=== PATIENT | female | born 1970 | race Caucasian/White ===

== ENCOUNTER 2025-03-23 13:02 | Observation (INO) | payer BC, SELFPAY ==
[2025-03-23] VITALS (10 sets, daily range): BP systolic 118–185; BP diastolic 65–107; PULSE 59–80; RESP 12–18; TEMP 36–36.7; O2SAT 96–100; BMI 22.5; BMI 23.6
--- NOTE | 2025-03-23 13:04 | CM.ED ---
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 Patient arrived via EMS and was alone and was taken off for medical treatment following initial assessment by ED doctor. Kiesha Johnson MSW, MANAGER ROOM
--- NOTE | 2025-03-23 13:05 | EKG12_ITS ---
Test Reason : STROKE Blood Pressure : */* mmHG Vent. Rate : 72 BPM Atrial Rate : 72 BPM P-R Int : 134 ms QRS Dur : 84 ms QT Int : 406 ms P-R-T Axes : 48 32 50 degrees QTcB Int : 444 ms Normal sinus rhythm Normal ECG Confirmed by Jayden Johnson ([id number]), medical editor MAUDE JACOME ([id number]) on 03/24/2025 10:25:35 AM Referred By: Confirmed By: Jayden Johnson
--- NOTE | 2025-03-23 13:08 | ED.VIS.STROK ---
HPI History of Present Illness Chief Complaint: Stroke Alert Informant: patient and EMS Narrative Narrative: Patient is a 54-year-old female presenting to the ED via EMS as a pre-hospital stroke alert with sudden onset of lightheadedness and generalized weakness. - Onset of symptoms occurred 1.5 hours prior to arrival while driving. She was able to safely toe puller into a parking lot and call EMS. - Describes feeling really lightheaded with a sensation of impending syncope. She states this probably lasted 30 minutes or so before significantly/noticeably improving. - Reports difficulty moving extremities, describing a feeling of heaviness. - Denies headache or visual changes. Also denies chest discomfort, palpitations, dyspnea, nausea, vomiting, other focal symptoms except for trouble speaking. - No loss of consciousness reported. - Similar episode occurred several years ago, evaluated in hospital with normal testing. - No known medical problems; not on any medications. EMS Report: - Blood pressure recorded in the 170s. - Pulse: 80 bpm. - No lateralizing deficits observed; generalized symmetrical weakness noted. - Speech normal; no visual field cuts. [facility] Medical History HTN (hypertension) Allergy/AdvReac Type Severity Reaction Status Date / Time Sulfa (Sulfonamide Allergy Intermediate Rash Verified 03/23/25 13:29 Antibiotics) Social History Smoking Status: Never smoker ROS [facility] ED Constitutional Constitutional ED: Denies chills or fever(s) Eyes Eyes: Denies change in vision or diplopia ENT ENT ED: Denies rhinorrhea or sore throat Cardiovascular Cardiovascular: Reports lightheadedness; Denies chest pain, palpitations, radiating jaw, neck or arm pain or syncope Respiratory/Chest Respiratory/Chest: Denies cough or dyspnea Gastrointestinal Gastrointestinal: Denies abdominal pain, diarrhea, nausea or vomiting Genitourinary Genitourinary ED: Denies dysuria or hematuria Musculoskeletal Musculoskeletal: Denies back pain or neck pain Integumentary Denies abscess or rash Neurologic Neurologic: Reports as per HPI and abnormal speech; Denies headache(s), paresthesias or weakness Psychiatric Psychiatric: Reports anxiety; Denies suicidal thoughts EXAM Physical Exam Const Vital Signs: 03/23/25 13:03 03/23/25 13:10 03/23/25 13:11 Temperature 96.8 F L Temperature Source Temporal Pulse Rate 80 80 Respiratory Rate 16 Blood Pressure 179/107 H 179/101 H Blood Pressure Mean 131 127 Pulse Ox 100 98 Oxygen Delivery Method Room Air Room Air 03/23/25 13:35 03/23/25 14:05 03/23/25 14:30 Temperature Temperature Source Pulse Rate 71 65 65 Respiratory Rate 16 17 16 Blood Pressure 158/97 H 173/99 H 170/90 H Blood Pressure Mean 117 123 116 Pulse Ox 100 100 100 Oxygen Delivery Method Room Air 03/23/25 15:00 Temperature Temperature Source Pulse Rate 65 Respiratory Rate 16 Blood Pressure 168/84 H Blood Pressure Mean 112 Pulse Ox 100 Oxygen Delivery Method Positive well nourished and well developed General Appearance ED: well developed and NAD HEENT Reports moist mucous membranes normocephalic and atraumatic Eyes PERRL and EOMs intact bilaterally Neck full ROM and supple Resp normal respiratory effort and clear to auscultation bilaterally Cardio regular rate, regular rhythm and no murmurs GI non-tender and non-distended Auscultation: normoactive bowel sounds Palpation: soft Back/Spine no CVA tenderness General Back: other FROM Extremity normal to inspection General Extremety ED: Negative for edema, pulses abnormal or tenderness General Extremity: Negative for edema or pulses abnormal Neuro oriented x3, CN's II-XII intact bilaterally and no sensory deficits noted Sensorium / Orientation: awake and alert Motor Exam: strength 5/5 throughout Psych Psych Narrative: Flat affect Skin no rashes or lesions noted and no wounds MDM MDM MDM Narrative Medical decision making narrative: Assessment: The patient is a 54-year-old female presenting for sudden near-syncopal episode with transient generalized weakness and possible expressive aphasia. Symptoms began 1.5 h prior to arrival while driving; no headache, visual field deficit, or focal motor deficit was noted by EMS or on ED exam. NIHSS 0. CT head and CTA head/neck are negative for hemorrhage or large-vessel occlusion, and her neurologic exam has returned to baseline with normal speech and ambulation. Initial EKG is normal and first troponin is negative. D-dimer is mildly elevated at 0.65 mcg/mL, so pulmonary embolism remains on the differential; CTA chest has been ordered. Given resolved neurologic findings and negative initial imaging, acute ischemic stroke is less likely, but admission is warranted for MRI brain and further stroke work-up. Plan: - Admit under hospitalist for stroke work-up and telemetry monitoring. - IV fluid bolus post-contrast per radiology recommendation. - Continue neurologic checks while awaiting CTA chest results. - Repeat troponin pending. Diagnostics: - EKG: normal sinus rhythm, no ST-T changes. Independently interpreted by Carter ferrell. - Labs: initial troponin negative; D-dimer 0.65 mcg/mL (age-adjusted elevated). - CT head: no acute hemorrhage. - CTA head/neck: no large-vessel occlusion. - CTA chest ordered; results pending. Consultations: - Stroke neurology ? not a thrombolytic candidate; recommend admission and MRI brain. - Hospitalist ? accepted admission for stroke evaluation. - Radiology ? agreed to low-contrast CTA chest with post-scan IV fluid flush. Reevaluations: - Patient?s weakness resolved; ambulatory in department and feeling much better. Lab Data Attestation: I reviewed the patient's lab results. Labs: Laboratory Results - last 24 hr 03/23/25 12:50 WBC 9.3 RBC 4.69 Hgb 14.3 Hct 42.8 MCV 91.3 MCH 30.5 MCHC 33.4 RDW Std Deviation 41.9 RDW Coeff of Dilip 12.6 Plt Count 318 MPV 10.8 Immature Gran % (Auto) 0.300 Neut % (Auto) 50.8 Lymph % (Auto) 38.3 [place] % (Auto) 7.3 Eos % (Auto) 2.4 Baso % (Auto) 0.9 Absolute Neuts (auto) 4.7 Absolute Lymphs (auto) 3.57 Nucleated RBC % 0 PT 13.0 INR 1.0 APTT 24.8 D-Dimer Quant (PE/DVT) 0.65 H* Sodium 138 Potassium 3.8 Chloride 103 Carbon Dioxide 21.7 Anion Gap 13 BUN 18 Creatinine 0.85 Estim Creat Clear Calc 69.67 Est GFR (MDRD) Non-Af 82 BUN/Creatinine Ratio 21.2 H Glucose 103 H Calcium 9.3 Troponin T High Sens < 6 Radiography Diagnostic Testing: Clinical Impression(s) from Imaging Studies Brain CT 03/23/25 13:10 IMPRESSION: 1. No acute intracranial abnormality. 2. Significant left ethmoid sinus disease. Reading Location: [id number] Head/Neck CTA 03/23/25 13:10 IMPRESSION: 1. No hemodynamically significant stenosis within the head or neck. No evidence of intracranial aneurysm. 2. Left thyroid nodule that is 1.1 cm. No further follow up required for incidental thyroid nodules measuring less than 1.5 cm in patients 35 years old and greater with no known history of malignancy or thyroid disease. Reading Location: [facility] Rhythm Strip Rhythm Strip: Sinus Rhythm Rate: 78 Ectopy: None EKG Initial EKG: Attestation: I personally reviewed and interpreted this EKG as follows: Interpretation: Sinus Rhythm and No Acute Injury Pattern Comments: Nml axis & intervals; nml EKG Management Discussion w/another healthcare provider: Hospitalist, Inspector Raw Quartz (stroke neuro via xfer cntr) and Radiologist (at 1340, reporting neg CT and neg CTA) Discharge Plan Dx/Rx/DC Orders Clinical Impression: Near syncope, Chest pain, Expressive aphasia, Accelerated hypertension Disposition Disposition: Acute Care Hospital [facility] NIHSS NIHSS 1a. Level of Consciousness: 0 - Alert; keenly responsive 1b. LOC Questions: 0 - Answers BOTH questions correctly 1c. LOC Commands: 0 - Performs BOTH tasks correctly 2. Best Gaze: 0 - Normal 3. Visual: 0 - No visual loss 4. Facial Palsy: 0 - Normal symmetrical movements 5a. Left Arm: 0 - No drift; arm holds 90 (or 45) degrees for full 10 seconds 5b. Right Arm: 0 - No drift; arm holds 90 (or 45) degrees for full 10 seconds 6a. Left Le - No drift; leg holds 30-degree position for full 5 seconds 6b. Right Le - No drift; leg holds 30-degree position for full 5 seconds 7. Limb Ataxia: 0 - Absent 8. Sensory: 0 - Normal; no sensory loss 9. Best Language: 0 - No aphasia; normal 10. Dysarthria: 0 - Normal 11. Extinction and Inattention: 0 - No abnormality Total: 0 Stroke Questions Stroke Team Activated: Yes (prehospital) IV Thrombolytic Administered: No (sx resolved)
--- NOTE | 2025-03-23 13:10 | CT_ITS ---
PROCEDURE: STROKE CTA HEAD AND NECK W/CON 03/23/2025 REASON FOR EXAM: NEURO DEFICIT, ACUTE, STROKE SUSPECTED TECHNIQUE: Procedure Code: CTCTA.ST.HN Modality: CT Procedure: STROKE CTA HEAD AND NECK W/CON Axial CTA images of the head and neck performed with intravenous contrast. MIP reconstructed images were created and reviewed. Note: Per PQRS, the description of internal carotid artery percent stenosis, including 0 percent or normal exam, is based on [place] Symptomatic Carotid Endarterectomy Trial (NASCET) criteria. CONTRAST: Isovue 370 VOLUME: 100 mL One or more dose reduction techniques were used (e.g., Automated exposure control, adjustment of the mA and/or kV according to patient size, use of iterative reconstruction technique). RADIATION DOSE SUMMARY: CTDlvol: 16.61, 16.14 mGy DLP: 611 mGycm COMPARISON: None. FINDINGS: CTA HEAD: INTERNAL CAROTID ARTERIES (ICA) No significant stenosis. No occlusion. No aneurysm. ANTERIOR CEREBRAL ARTERIES (GOSIA) No significant stenosis. No occlusion. No aneurysm. MIDDLE CEREBRAL ARTERIES (MCA) No significant stenosis. No occlusion. No aneurysm. POSTERIOR CEREBRAL ARTERIES (INTERLOCKING TOWER OPERATOR) No significant stenosis. No occlusion. No aneurysm. BASILAR ARTERY No significant stenosis. No occlusion. No aneurysm. VERTEBRAL ARTERIES No significant stenosis. No dissection or occlusion. VENOUS STRUCTURES Patent. BONES No acute osseous abnormality. CTA NECK: COMMON CAROTID ARTERIES (CCA) No significant stenosis. No dissection or occlusion. INTERNAL CAROTID ARTERIES No stenosis by NASCET criteria. No dissection or occlusion. VERTEBRAL ARTERIES No significant stenosis. No dissection or occlusion. SOFT TISSUES Mixed density 1.1 cm nodule in the left thyroid lobe. No lymphadenopathy. BONES No acute osseous abnormality. Mild degenerative changes of the spine. CT/STROKE CTA Head AND Neck W/Con IMPRESSION: 1. No hemodynamically significant stenosis within the head or neck. No evidenc e of intracranial aneurysm. 2. Left thyroid nodule that is 1.1 cm. No further follow up required for inci dental thyroid nodules measuring less than 1.5 cm in patients 35 years old and greater with no known history of malignancy or thy roid disease. Reading Location: [id number]
--- NOTE | 2025-03-23 13:10 | CT_ITS ---
PROCEDURE: STROKE BRAIN/HEAD WITHOUT CONT 03/23/2025 REASON FOR EXAM: NEURO DEFICIT, ACUTE, STROKE SUSPECTED TECHNIQUE: Procedure Code: CTBR.ST Modality: CT Procedure: STROKE BRAIN/HEAD WITHOUT CONT Coronal and Sagittal reconstruction series were provided. One or more dose reduction techniques were used (e.g., Automated exposure control, adjustment of the mA and/or kV according to patient size, use of iterative reconstruction technique. RADIATION DOSE SUMMARY: CTDlvol: 44.99 mGy DLP: 897 mGycm COMPARISON: None. FINDINGS: BRAIN: No acute intraparenchymal hemorrhage. No mass lesion. No CT evidence for acute territorial infarct. No midline shift or extra-axial collection. Small hypodense focus in the inferior right basal ganglia, likely an old lacunar infarct or prominent perivascular space. VENTRICLES: No hydrocephalus. ORBITS: The orbits are unremarkable. SINUSES AND MASTOIDS: Mild hnoo-oqdxlrd-jgqm-right maxillary sinus mucosal thickening. Near-complete left ethmoid sinus opacification. The mastoid air cells are clear. SOFT TISSUES: No acute abnormality seen. BONES: No acute osseous abnormality seen. CT/STROKE Brain/Head without Cont IMPRESSION: 1. No acute intracranial abnormality. 2. Significant left ethmoid sinus disease. Reading Location: [id number]
[2025-03-23 13:47] LABS: Prothrombin Time (Protime)PT. 13.0 SECONDS (11.7-14.9)
[2025-03-23 13:48] LABS: Partial Thromboplast Time 24.8 Seconds (24.1-36.2)
[2025-03-23 13:50] LABS: Anion Gap 13 (5-15); BUN 18 mg/dL (4-19); BUN/Creat Ratio 21.2 RATIO (10-20); Calcium,Total 9.3 mg/dL (7.6-11.0); Carbon Dioxide 21.7 mmol/L (21.0-32.0); Chloride 103 mmol/L (98-108); Estimated Creatinine Clearance 69.67 ml/min (50-250); Glucose 103 mg/dL (70-99); Potassium 3.8 mmol/L (3.3-5.1); Troponin T High Sensitivity < 6 ng/L (<=14)
[2025-03-23 14:02] LABS: Hematocrit 42.8 % (37-47); Hemoglobin 14.3 g/dL (12.0-15.0); Immature Granulocytes Count 0.030 X10^3/uL (0.0-0.0); Mean Corp Hgb Conc 33.4 g/dL (32-36); Mean Corpuscular Volume 91.3 fL (81-99); Mean Platelet Vol. 10.8 fl (6.2-12.0); NRBC Flagged by Analyzer 0 % (0-5); Platelet Count 318 K/mm3 (150-450); RBC Distribution Width CV 12.6 % (11.6-14.6); RBC Distribution Width SD 41.9 fl (35.1-43.9); Red Blood Count 4.69 M/mm3 (4.2-5.4); White Blood Count 9.3 K/mm3 (4.4-11.0)
[2025-03-23 14:09] LABS: D-Dimer Quantitative (DVT/PE) 0.65 FEU/ug/m (0.27-0.49)
--- NOTE | 2025-03-23 14:47 | HP.PCM.HOS_ITS ---
HPI - General General Date of Admission: 03/23/25 Date of Service: 03/23/25 Chief Complaint: lightheadedness, weakness HPI Narrative MITCHELL BOWLING, is a 54 F with a PMH as outlined who was admitted via the ED on 03/23/2025 with a complaint of lightheadedness and weakness, with symptom onset being ~ 1.5 hours prior to her coming in to the ED. Symptoms occurred whilst driving. Sh started feeling very lightheaded, and had difficulty moving her extremities. SHe denied any chest pain initially but during my review she admitted to some intermittent chest pain, and denied any shortness of breath, nausea, vomiting or any other symptoms. She had associated hyperventilation. Review of systems was otherwise negative. The EMS was called and she was lethargic when she arrived, but they did not note any focal symptoms. Review of systems is otherwise negative. Patient admits to going through a divorce and also states she has a very stressful job. She also has a history of panic attacks. She had a similar occurrence several years ago and says she was worked up for stroke at that time to and other workup was negative. VItals in the ED were BP of 170/90, [place] of 65, RR of 16 and oxygen sats of 100% on room air. CBC showed Hb of 14.3, wbc of 9.3 and platelets of 318. D-dimer was 65 which is elevated for age. Chemistry shows sodium of 138 with potassium of 3.8 and bicarb of 21.7 with creatinine of 0.85. CT of the brain showed no acute intracranial pathology and showed significant left ethmoid sinus disease. CTA head and neck showed no hemodynamically significant stenosis. [facility] telestroke neurology reviewed her and recommended that she be admitted to be worked up for stroke. [facility] Medical History (Updated 03/23/25 @ 16:32 by Christine Tate) Raynauds syndrome HTN (hypertension) Home Medications ?Medication ?Instructions ?Recorded ?Last Taken ?Type lisinopril 5 mg tablet 5 mg PO DAILY 03/23/2503/23 History Allergy/AdvReac Type Severity Reaction Status Date / Time Sulfa (Sulfonamide Allergy Intermediate Rash Verified 03/23/25 13:29 Antibiotics) Family History (Updated 03/23/25 @ 16:33 by Christine Tate) Mother Colon cancer Father Lung cancer Surgical History (Updated 03/23/25 @ 16:33 by Christine Tate) History of ankle surgery Social History Smoking Status: Never smoker ROS Constitutional Constitutional: Reports fatigue, malaise and weakness; Denies anorexia, chills or fever(s) Eyes Eyes: Denies change in vision or double vision ENT HEENT: Denies dysphagia, headache(s) or sore throat Cardiovascular Cardiovascular: Reports lightheadedness; Denies chest pain, dyspnea on exertion, orthopnea, palpitations, paroxysmal nocturnal dyspnea, rapid heart rate or syncope Respiratory/Chest Respiratory/Chest: Denies cough, dyspnea, shortness of breath at rest or shortness of breath with exertion Gastrointestinal Gastrointestinal: Denies abdominal pain, diarrhea, nausea or vomiting Genitourinary Genitourinary: Denies burning urination or dysuria Musculoskeletal Musculoskeletal: Denies joint pain Neurologic Neurologic: Reports dizziness; Denies abnormal speech, confusion, focal weakness, headache(s), numbness, paresthesias, seizure-like activity, seizures or syncope Psychiatric Psychiatric: Denies anxiety Vital Signs Vital Signs Vital Signs: 03/23/25 13:03 03/23/25 13:10 03/23/25 13:11 Temperature 96.8 F L Temperature Source Temporal Pulse Rate 80 80 Respiratory Rate 16 Blood Pressure 179/107 H 179/101 H Blood Pressure Mean 131 127 Pulse Ox 100 98 Oxygen Delivery Method Room Air Room Air 03/23/25 13:35 03/23/25 14:05 03/23/25 14:30 Temperature Temperature Source Pulse Rate 71 65 65 Respiratory Rate 16 17 16 Blood Pressure 158/97 H 173/99 H 170/90 H Blood Pressure Mean 117 123 116 Pulse Ox 100 100 100 Oxygen Delivery Method Room Air Weight Weight: 135 lb 9.349 oz Body Mass Index (BMI) 22.5 Physical Exam Const alert, oriented x3 and no apparent distress Constitutional Narrative: flat affect General Appearance: cooperative HEENT normocephalic, head/scalp atraumatic, hearing grossly normal bilaterally and moist oral mucous membranes Mouth: oral and palatal mucosa normal Eyes PERRL, EOMs intact bilaterally and conjunctivae normal Neck supple and no JVD Resp normal respiratory effort, no retractions, no use of accessory muscles and clear to auscultation bilaterally Cardio regular rate, regular rhythm, S1 normal heart sound, S2 normal heart sound and no murmurs GI normal to inspection, nondistended, normoactive bowel sounds, soft to palpation, non-tender and non-distended Extremity normal to inspection and full ROM Neuro oriented x3, moves all extremities and no focal motor deficits Sensorium / Orientation: awake and alert Speech: speech normal Motor Exam: strength 5/5 throughout Psych Psych Narrative: flat affect Results Lab / Micro Data 03/23/25 12:50 03/23/25 12:50 Labs: Laboratory Results - last 24 hr 03/23/25 12:50: WBC 9.3, RBC 4.69, Hgb 14.3, Hct 42.8, MCV 91.3, MCH 30.5, MCHC 33.4, RDW Std Deviation 41.9, RDW Coeff of Dilip 12.6, Plt Count 318, MPV 10.8, Immature Gran % (Auto) 0.300, Neut % (Auto) 50.8, Lymph % (Auto) 38.3, [place] % (Auto) 7.3, Eos % (Auto) 2.4, Baso % (Auto) 0.9, Absolute Neuts (auto) 4.7, Absolute Lymphs (auto) 3.57, Nucleated RBC % 0, PT 13.0, INR 1.0, APTT 24.8, D- Dimer Quant (PE/DVT) 0.65 H*, Sodium 138, Potassium 3.8, Chloride 103, Carbon Dioxide 21.7, Anion Gap 13, BUN 18, Creatinine 0.85, Estim Creat Clear Calc 69.67, Est GFR (MDRD) Non-Af 82, BUN/Creatinine Ratio 21.2 H, Glucose 103 H, Calcium 9.3, Troponin T High Sens < 6 Rhythm Strip Rhythm Strip: Sinus Rhythm Rate: 78 Ectopy: None Imaging Radiology Impression Brain CT 03/23/25 13:10 IMPRESSION: 1. No acute intracranial abnormality. 2. Significant left ethmoid sinus disease. Reading Location: [id number] Head/Neck CTA 03/23/25 13:10 IMPRESSION: 1. No hemodynamically significant stenosis within the head or neck. No evidence of intracranial aneurysm. 2. Left thyroid nodule that is 1.1 cm. No further follow up required for incidental thyroid nodules measuring less than 1.5 cm in patients 35 years old and greater with no known history of malignancy or thyroid disease. Reading Location: [facility] Assessment & Plan Assessment/Plan (1) Stroke-like symptom: PLAN: Plan #presyncope to rule out a stroke * Admit to PCU under observation. Patient admitted with a complaint of lightheadedness and presyncopal symptoms. * Symptoms had resolved by time she came to the ED. CT of the brain showed no acute intracranial pathology. CTA of the head and neck showed no hemodynamically significant stenosis. * Get MRI of the brain tomorrow without contrast. Get 2D echo * Consult PT OT. Fall precautions. * I am concerned that this could be somatizations symptoms and a possible panic attack in light of her history of panic attacks and undergoing stressful situations such as a divorce and also having a stressful job. However it is important to rule out any organic pathology by getting the MRI. * #Chest pain: Patient complained of some intermittent chest pain. EKG showed normal sinus rhythm. Will cycle troponins. * #Elevated D-dimer: * D-dimer 0.63 which is elevated for her age. * She does not really have any symptoms of PE. * However we will get a CTA to rule out PE on account of the elevated D-dimer; CTA of the chest showed no evidence of PE and showed no acute pathology. #Elevated blood pressure: * Blood pressure is 170/90. Patient does not have a history of hypertension. * Will hold off on all BP meds and she will receive IV labetalol as needed Stroke protocol. To allow for permissive hypertension in case of a stroke. * If blood pressure remains elevated, will consider starting oral BP meds. * DVT prophylaxis: SCDs Code status: Full code Charges/Coding Visit Charges Inpatient E&M: 66815 Init Hosp L2
--- NOTE | 2025-03-23 15:05 | CT_ITS ---
PROCEDURE: CTA CHEST W/WO CONTRAST 03/23/2025 REASON FOR EXAM: NEAR-SYNCOPE, ELEVATED D-DIMER TECHNIQUE: Procedure Code: [id number] Modality: CT Procedure: CTA CHEST W/WO CONTRAST Multiplanar Sagittal and Coronal images were obtained. 3D reconstructions CONTRAST: Isovue 370 VOLUME: 75 mL One or more dose reduction techniques were used (e.g., Automated exposure control, adjustment of the mA and/or kV according to patient size, use of iterative reconstruction technique). RADIATION DOSE SUMMARY: CTDlvol: 11 mGy DLP: 172 mGycm FINDINGS: Inspection of the lung parenchyma with thin sections demonstrates no edema, fibrosis or suspicious pulmonary mass lesion. Evaluating the chest from inferior to superior, as is the protocol at this hospital, there is no aortic aneurysm or dissection. There is no evidence of intra-arterial pulmonary embolus. The upper abdomen is grossly unremarkable. There is no thoracic aneurysm or dissection. There is no significant coronary calcification. CT/CTA Chest W/WO Contrast IMPRESSION: No acute abnormality Reading Location[facility]
--- OUTSIDE RECORDS SUMMARY | 2025-03-23 15:39 | XMS RPT_ITS | CCD ---
Author Organization [facility] Inform ion Partnership [facility] Care Team Providers Care Book Coverer Name Role Phone Vanita Lizarraga MD Primary Care Provider Vanita Lizarraga MD Primary Care Provider Kaylee Miller MD Unavailable Vanita Lizarraga MD Primary Care Provider Vanita Lizarraga MD Primary Care Provider Kaylee Miller MD Unavailable Kiesha Ochoa MD Unavailable [phone] VANITA LIZARRAGA Attending Unavailable VANITA LIZARRAGA Primary Care Unavailable [facility] SELFREFERRAL, SELFREFERRAL~[phone] [facility] Referring Unavailable VANITA LIZARRAGA Primary Care Unavailable KOURTNEY PAK Attending Unavailable VANITA ANTON~[phone] Primar y Care Unavailable Allergies Allergy Classification Reported Allergen(s) Allergy Type Date of Onset Reaction(s) Facility (16 sources) Sulfamethoxazole / Trimethoprim; Translations: [SULFAMETHOXAZOLE-TR IMETHOPRIM] Drug Allergy 8 [facility] (16 sources) Sulfonamides (Antibiotic); Translations: [SULFA (SULFONAMIDE ANTIBIOTICS)] Propensity to adverse reactions 2 [facility] Medications Current Medications Medication Drug Class(es) Dates Sig (Normalized) Sig (Original) [id number] 200 actuat albuterol 0.09 mg/actuat metered dose inhaler (19 sources) beta2-Adrenergic Agonist Start: 01-17-2024 End: 01-20-2025 take 2 puff(s) by inhalation four times daily for wheezing albuterol 90 mcg/actuation inhaler Indications: Exercise induced bronchospasm Inhale 2 puffs 4 (four) times a day if needed for wheezing. 18 g 1 01/20/2025 Active Start: 09-20-2022 take 2 puff(s) by in halation four times daily for wheezing albuterol 90 mcg/actuation inhaler Indications: Exercise induced bronchospasm INHALE 2 PUFFS 4 (FOUR) TIMES A DAY IF NEEDED FOR WHEEZING. 18 g 0 09/20/2022 Active Start: 01-10-2022 End: 07-26-2022 take 2 puff(s) by inhalation four times daily for wheezing albuterol 90 mcg/actuation inhaler Indications: Exercise induced bronchospasm Inhale 2 puffs 4 (four) times a day if needed for wheezing. 18 g 0 07/26/2022 Active Start: 10-05-2021 End: 10-05-2022 take 2 puff(s) by inhalation every six hours for wheezing albuterol (Ventolin HFA) 90 mcg/actuation inhaler Inhale 2 puffs every 6 (six) hours if needed for wheezing or shortness of breath. 18 g 0 10/05/2021 01/10/2022 Discontinued Start: 05-29-2016 albuterol HFA (PROAIR HFA ; PROVENTIL HFA ; VENTOLIN HFA) 90 mcg/actuation inhaler Inhale 2 puffs by mouth. 05/29/2016 Active Start: 08-05-2013 End: 01-10-2022 take 2 puff(s) by inhalation four times daily for wheezing albuterol 90 mcg/actuation inhaler Inhale 2 puffs 4 (four) times a day if needed for wheezing. 0 08/05/2013 01/10/2022 Discontinued (Reorder) cephalexin 500 mg oral capsule (1 source) Cephalosporin Antibacterial Start: 10-05-2021 End: 10-15-2021 take 1 capsule by mouth twice daily cephalexin (Keflex) 500 mg capsule Indications: Acute cystitis with hematuria Take 1 capsule (500 mg total) by mouth 2 (two) times a day for 10 days. 20 capsule 0 10/05/2021 10/15/2021 Active levonorgestrel 0.177854 mg/hr intrauterine system (14 sources) Progestin, Progestin-containin g Intrauterine Device levonorgestreL (MIRENA) 21 mcg/24 hours (8 yrs) 52 mg IUD 1 Device (1 each total) by intrauterine route. Active lisinopril 5 mg oral tablet (14 sources) Angiotensin Converting Enzyme Inhibitor Start: 01-11-2023 End: 01-20-2025 take 1 tablet by mouth once daily lisinopriL 5 mg tablet Indications: Primary hypertension TAKE 1 TABLET BY MOUTH 1 TIME EACH DAY. 90 tablet 3 01/20/2025 Active Start: 07-26-2022 End: 01-22-2023 take 1 tablet by mouth once daily lisinopriL 2.5 mg tablet Indications: Primary hypertension TAKE 1 TABLET BY MOUTH 1 TIME EACH DAY. 30 tablet 4 08/24/2022 01/11/2023 Discontinued multivit with calcium,iron,min (MULTIPLE VITAMIN, WOMENS ORAL) (1 source) multivit with calcium,iron,min (MULTIPLE VITAMIN, WOMENS ORAL) Take by mouth. Active phenazopyridine hydrochloride 200 mg oral tablet (1 source) Start: 10-05-2021 End: 10-08-2021 take 1 tablet by mouth three times daily at mealtime phenazopyridine (Pyridium) 200 mg tablet Indications: Acute cystitis with hematuria Take 1 tablet (200 mg total) by mouth 3 (three) times a day with meals for 3 days. 10 tablet 0 10/05/2021 10/08/2021 Active Completed/Discontinued Medications Medication Drug Class(es) Dates Sig (Normalized) Sig (Original) magnesium sulfate 0.0277 meq/ml / potassium sulfate 0.0374 meq/ml / sodium sulfate 0.257 meq/ml oral solution (7 sources) Start: 04-19-2022 End: 03-10-2025 sodium,potassium,mag sulfates (Suprep Bowel Prep Kit) 17.5-3.13-1.6 gram recon soln bowel prep kit oral solution Take as instructed form the office 1 kit 04/19/2022 03/10/2025 Discontinued (Therapy completed) Start: 04-19-2022 sodium,potassi um,mag sulfates (Suprep Bowel Prep Kit) 17.5-3.13-1.6 gram recon soln bowel prep kit oral solution Take as instructed form the office 1 kit 0 04/19/2022 Active sod sulf-pot chloride-mag foster lf (Sutab) 1.479-0.188- 0.225 gram tablet (1 source) Start: 01-19-2022 End: 04-19-2022 sod sulf-pot chloride-mag foster lf (Sutab) 1.479-0.188- 0.225 gram tablet Take 12 tablets by mouth 1 (one) time each day for 2 days. 24 tablet 0 01/19/2022 04/19/2022 Discontinued Problems Active Problems Problem Classification Problem Date Documented Date Episodic/Chronic Asthma (14 sources) Mild intermittent asthma; Translations: [Mild intermittent asthma, uncomplicated] Onset: 09-01-2009 Chronic Contraceptive and procreative management (3 sources) Intrauterine contraceptive device in situ; Translations: [Encounter for routine checking of intrauterine contraceptive device] Onset: 03-10-2025 03-10-2025 Episodic Essential hypertension (6 sources) Essential hypertension; Translations: [Essential (primary) hypertension] Onset: 07-06-2023 Chronic Immunizations and screening for infectious disease (1 source) Vaccination needed; Translations: [Encounter for immunization] 01-11-2023 Episodic Other aftercare (1 source) Surgical follow-up; Translations: [Encounter for follow-up examination after completed treatment for conditions other than malignant neoplasm] 07-31-2023 Episodic Other circulatory disease (8 sources) Raynaud's disease; Translations: [Raynaud's syndrome without gangrene] Onset: 03-13-2013 01-10-2022 Chronic Other upper respiratory disease (8 sources) Allergic rhinitis; Translations: [Allergic rhinitis, unspecified] Onset: 09-24-2008 01-10-2022 Chronic Unclassified (2 sources) Patient encounter status 08-22-2024 Urinary tract infections (1 source) Acute cystitis; Translations: [Acute cystitis with hematuria] Episodic Past or Other Problems Problem Classification Problem Date Documented Da te Episodic/Chronic Abdominal hernia (15 sources) Umbilical hernia; Translations: [Umbilical hernia without obstruction or gangrene] Onset: 08-17-2007 01-10-2022 Episodic E Codes: Adverse effects of medical drugs (8 sources) Sulfonamide adverse reaction; Translations: [Adverse effect of sulfonamides, initial encounter] Onset: 02-06-2018 01-10-2022 Episodic Mood disorders (6 sources) Mood disorders Onset: 01-11-2023 Resolved: 01-20-2025 01-11-2023 Other injuries and conditions due to external causes (2 sources) Motion sickness; Translations: [Motion sickness, initial encounter] Onset: 07-06-2023 07-06-2023 Episodic Other lower respiratory disease (8 sources) Wheezing; Translations: [Wheezing] Onset: 02-06-2015 01-10-2022 Episodic Other screening for suspected conditions (not mental disorders or infectious disease) (19 sources) Patient encounter status; Translations: [Encounter for screening mammogram for malignant neoplasm of breast] Onset: 08-21-2017 Episodic Residual codes; unclassified (1 source) Transient altered mental status; Translations: [Transient alteration of awareness] Onset: 04-17-2019 01-10-2022 Episodic Residual codes; unclassified (7 sources) Transient alteration of awareness; Translations: [Transient alteration of awareness] Onset: 04-17-2019 01-10-2022 Episodic Results Test Name Value Interpretation Reference Range Facility MG MAMMO DIGITAL SCREENING W KYREE BILATon 08-22-2024 MG MAMMO DIGITAL SCREENING W [facility]REE BILAT EXAMINATION TYPE: MG MAMMO DIGITAL SCREENING W KYREE BILAT DATE OF EXAM: 08/22/2024 10:01 AM PRIOR STUDIES: 2023 and additional priors REASON FOR STUDY: Breast cancer screening with digital breast Tomosynthesis. TECHNIQUE: Multiple tomographic low dose images were obtained in each projection. These low-dose images were reconstructed into 1 mm thick slices and reviewed on the soft copy workstation along with additional reconstructed standard digital bilateral mammogram images. Computer-aided detection utilizing Pocket [employer] reader has been performed. BREAST COMPOSITION: C - The breasts are heterogeneously dense which may obscure small masses. FINDINGS: There are no suspicious abnormalities. There has been no significant interval change. IMPRESSION: No Digital Breast Tomosynthesis evidence for malignancy. Recommend annual digital breast Tomosynthesis. Given patient's dense breast parenchyma, she may benefit from supplemental screening such as abbreviated screening breast MRI (ABMR) or screening breast ultrasound. BI-RADS Code: 1 - NEGATIVE RECOMMENDATION: Screening bilateral mammogram is recommended in 1 year. STUDY LOCATION: . [address] [place] [address], [facility]. [phone]. COMMENTS: Results of this examination will be immediately mailed to the patient. This medical institution adheres to the [employer] screening guidelines. Breast Cancer Screening ([email or web address]) -------- FINAL REPORT -------- Dictated By: Lesa Hanna Dictated Date: 08/23/2024 12:46 Assigned Physician: Lesa Hanna Reviewed and Electronically Signed By: Lesa Hanna Signed Date: 08/23/2024 12:49 Workstation ID: [id number] Transcribed By: Self Edit Transcribed Date: 08/23/2024 12:46 Normal [facility] DBT Breast - bilateral scree annelise 08-21-2023 No Digital Breast Tomosynthesis evidence for malignancy. Recommend annual digital breast Tomosynthesis. Given patient's dense breast parenchyma, she may benefit from supplemental screening such as abbreviated screening breast MRI (ABMR) or automated breast ultrasound screening (ABUS). If the patient has elevated lifetime risk, consider surgical, oncological, or genetic counseling and/or screening MRI. BI-RADS Code: 1 - NEGATIVE RECOMMENDATION: Screening bilateral mammogram is recommended in 1 year. COMMENTS: Results of this examination will be immediately mailed to the patient. This medical institution adheres to the [employer] screening guidelines. Breast Cancer Screening ([email or web address]) -------- FINAL REPORT -------- Dictated By: Blake Ramires Dictated Date: 08/21/2023 09:49 Assigned Physician: Blake Ramires Reviewed and Electronically Signed By: Blake Ramires Signed Date: 08/21/2023 09:51 Workstation ID: [id number] Transcribed By: Self Edit Transcribed Date: 08/21/2023 09:49 POWERSCRIBE EXAMINATION TYPE: MG MAMMO DIGITAL SCREENING W KYREE BILAT DATE OF EXAM: 08/21/2023 9:35 AM PRIOR STUDIES: 08/05/2022, 07/20/2021, 05/13/2020, 04/29/2019, 04/25/2019, 03/29/2019, 02/13/2018 REASON FOR STUDY: Breast cancer screening with digital breast Tomosynthesis. TECHNIQUE: Multiple tomographic low dose images were obtained in each projection. These low-dose images were reconstructed into 1 mm thick slices and reviewed on the soft copy workstation along with additional reconstructed standard digital bilateral mammogram images. Computer-aided detection utilizing R2CAD reader has been performed. BREAST COMPOSITION: C - The breasts are heterogeneously dense which may obscure small masses. FINDINGS: There are no suspicious abnormalities. There has been no significant interval change. POWERSCRIBBlake Austin MD - 08/21/2023 EXAMINATION TYPE: MG MAMMO DIGITAL SCREENING W KYREE BILAT DATE OF EXAM: 08/21/2023 9:35 AM PRIOR STUDIES: 08/05/2022, 07/20/2021, 05/13/2020, 04/29/2019, 04/25/2019, 03/29/2019, 02/13/2018 REASON FOR STUDY: Breast cancer screening with digital breast Tomosynthesis. TECHNIQUE: Multiple tomographic low dose images were obtained in each projection. These low-dose images were reconstructed into 1 mm thick slices and reviewed on the soft copy workstation along with additional reconstructed standard digital bilateral mammogram images. Computer-aided detection utilizing R2CAD reader has been performed. BREAST COMPOSITION: C - The breasts are heterogeneously dense which may obscure small masses. FINDINGS: There are no suspicious abnormalities. There has been no significant interval change. IMPRESSION: No Digital Breast Tomosynthesis evidence for malignancy. Recommend annual digital breast Tomosynthesis. Given patient's dense breast parenchyma, she may benefit from supplemental screening such as abbreviated screening breast MRI (ABMR) or automated breast ultrasound screening (ABUS). If the patient has elevated lifetime risk, consider surgical, oncological, or genetic counseling and/or screening MRI. BI-RADS Code: 1 - NEGATIVE RECOMMENDATION: Screening bilateral mammogram is recommended in 1 year. COMMENTS: Results of this examination will be immediately mailed to the patient. This medical institution adheres to the [employer] screening guidelines. Breast Cancer Screening ([email or web address]) -------- FINAL REPORT -------- Dictated By: Blake Ramires Dictated Date: 08/21/2023 09:49 Assigned Physician: Blake Ramires Reviewed and Electronically Signed By: Blake Ramires Signed Date: 08/21/2023 09:51 Workstation ID: [id number] Transcribed By: Self Edit Transcribed Date: 08/21/2023 09:49 [facility] Radiology Study observation (narrative) [facility] DBT Breast - bilateral scree ningOrdered By: Blake Ramires on 08-21-2023 [facility] Work Phone: Basic metabolic 1998 panelon 07-05-2023 Anion gap [Moles/Vol] 11.6 mmol/L 8.0 - 22.0 [facility] Calcium [Mass/Vol] 8.9 mg/dL 8.7 - 10. 4 mg/dL [facility] Chloride [Moles/Vol] 104 mmol/L 99 - 10 9 mmol/L [facility] CO2 [Moles/Vol] 27 mmol/L 20 - 31 mmol/L [facility] Creatinine [Mass/Vol] 0.8 mg/dL 0.5 - 1.1 mg/dL [facility] Fasting status Reported Ql [facility] GFR/1.73 sq M.predicted MDRD (S/P/Bld) [Vol rate/Area] 89.9 mL/min/{1.73_m2} =>60 mL/min/1.73m*2 [facility] Comment on above: CALCULATION BASED ON THE CHRONIC KIDNEY DISEASE EPIDEMIOLOGY COLLABORATION (CKD-EPI) EQUATION REFIT WITHOUT ADJUSTMENT FOR RACE. GFR LESS THAN 60 mL/min/1.73m2: SUGGESTIVE OF CHRONIC KIDNEY DISEASE. GFR LESS THAN 15 mL/min/1.73m2: SUGGESTIVE OF END STAGE RENAL DISEASE. Glucose [Mass/Vol] 96 mg/dL 74 - 106 mg/dL [facility] Comment on above: NOTE IF THIS IS A FASTING SPECIMEN THE FOLLOWING RANGES APPLY: NORMAL 70 TO 99 mg/dL PREDIABETIC 100 TO 125 mg/dL DIABETIC >= 126 mg/dL Osmolality Calc [Osmolality] 289 mosm/kg 275 - 305 mosm/kg [facility] Potassium [Moles/Vol] 3.6 mmol/L 3.6 - 5.1 mmol/L [facility] Sodium [Moles/Vol] 139 mmol/L 132 - 146 mmol/L [facility] Urea nitrogen [Mass/Vol] 16 mg/dL 9 - 23 mg/dL [facility] Urea nitrogen/Creatinine [Mass ratio] 20.0 mg/mg 6.0 - 20.0 [facility] CBC W Auto Differential pane l (Bld)on 07-05-2023 Basophils (Bld) [#/Vol] 0.0 10*3/uL 0.0 - 0.1 10*3/uL [facility] Basophils/100 WBC (Bld) 0.6 % 0.0 - 1.0 % [facility] Eosinophils (Bld) [#/Vol] 0.1 10*3/uL 0.1 - 0.3 10*3/uL [facility] Eosinophils/100 WBC (Bld) 0.9 % Low 1.0 - 4.0 % [facility] Erythrocyte distribution width (RBC) [Ratio] 13.5 % 11.5 - 14.5 % [facility] Hematocrit (Bld) [Volume fraction] 40.9 % 36.0 - 46.0 % [facility] Hemoglobin (Bld) [Mass/Vol] 13.8 g/dL 12.0 - 16.0 g/dL [facility] Interpretation and review of laboratory results Abnormal [facility] Lymphocytes (Bld) [#/Vol] 2.6 10*3/uL 1.0 - 3.5 10*3/uL [facility] Lymphocytes/100 WBC (Bld) 30.4 % 24.0 - 44.0 % [facility] MCH (RBC) [Entitic mass] 31.3 pg 26.0 - 34.[address] [facility] MCHC (RBC) [Mass/Vol] 33.7 g/dL 31.0 - 37.0 g/dL [facility] MCV (RBC) [Entitic vol] 93.0 fL 80.0 - 100.[address] [facility] Monocytes (Bld) [#/Vol] 0.6 10*3/uL 0.1 - 1.0 10*3/uL [facility] Monocytes/100 WBC (Bld) 6.6 % 1.0 - 7.0 % [facility] Neutrophils (Bld) [#/Vol] 5.2 10*3/uL 1.6 - 7.5 10*3/uL [facility] Neutrophils/100 WBC (Bld) 61.5 % 36.0 - 71.0 % [facility] Platelet mean volume (Bld) [Entitic vol] 9.0 fL 7.4 - 10.[address] [facility] Platelets (Bld) [#/Vol] 257 10*3/uL 140 - 440 10*3/uL [facility] RBC (Bld) [#/Vol] 4.40 10*6/uL 4.00 - 5.2 0 10*6/uL [facility] WBC (Bld) [#/Vol] 8.4 10*3/uL 4.0 - 11.0 10*3/uL [facility] ECG 12 leadOrdered By: Ivy Ndiaye on 07-05-2023 Atrial Rate ECG/min 56 BPM [facility] Work Phone: [place] Interpretation Sinus bradycardia Otherwise normal ECG Confirmed by Ivy Ndiaye ([id number]) on 07/05/2023 9:14:[address] [facility] Work Phone: Ventricular rate ECG/min 56 BPM [facility] [employer] Work Phone: [facility] [employer] Work Phone: XR Foot - right 3 Viewson 1. No acute osseous abnormality. CPACS RIGHT FOOT: TECHNIQUE: AP, lateral and oblique views (3 views) CLINICAL INDICATION: Right foot pain. COMPARISON: None available in PACS. FINDINGS: Fracture: No acute displaced fracture is identified. There is no stress reaction. Alignment: No dislocation is identified. Joint spaces are preserved. Bones: No destructive osseous lesion is identified. Mineralization is within normal limits. Soft tissues: There are no radiopaque foreign bodies. [facility] Magen Reed MD - 01/20/2023 RIGHT FOOT: TECHNIQUE: AP, lateral and oblique views (3 views) CLINICAL INDICATION: Right foot pain. COMPARISON: None available in PACS. FINDINGS: Fracture: No acute displaced fracture is identified. There is no stress reaction. Alignment: No dislocation is identified. Joint spaces are preserved. Bones: No destructive osseous lesion is identified. Mineralization is within normal limits. Soft tissues: There are no radiopaque foreign bodies. IMPRESSION: 1. No acute osseous abnormality. [facility] Radiology Study observation (narrative) [facility] XR Foot - right 3 ViewsOrder ed By: Magen Reed on 01-20-2023 [facility] Work Phone: CBC panel Auto (Bld)on 07-27 Erythrocyte distribution width (RBC) [Ratio] 13.7 % 11.5 - 14.5 % [facility] Hematocrit (Bld) [Volume fraction] 41.9 % 36.0 - 46.0 % [facility] Hemoglobin (Bld) [Mass/Vol] 13.9 g/dL 12.0 - 16.0 g/dL [facility] Interpretation and review of laboratory results Normal [facility] MCH (RBC) [Entitic mass] 30.9 pg 26.0 - 34.[address] [facility] MCHC (RBC) [Mass/Vol] 33.2 g/dL 31.0 - 37.0 g/dL [facility] MCV (RBC) [Entitic vol] 93.2 fL 80.0 - 100.[address] [facility] Platelet mean volume (Bld) [Entitic vol] 8.7 fL 7.4 - 10.[address] [facility] Platelets (Bld) [#/Vol] 268 10*3/uL 140 - 440 10*3/uL [facility] RBC (Bld) [#/Vol] 4.50 10*6/uL 4.00 - 5.2 0 10*6/uL [facility] WBC (Bld) [#/Vol] 7.2 10*3/uL 4.0 - 11.0 10*3/uL [facility] TSHon 07-27-2022 TSH Qn 1.89 m[IU]/L [facility] TSH Qnon 07-27-2022 Interpretation and review of laboratory results Normal [facility] Urinalysis complete panel (U )Ordered By: Juana Dong on 07-27-2022 Bacteria LM.HPF (Urine sed) [#/Area] None Seen None /HPF [facility] Bilirubin Ql (U) Small Abnormal Negative [facility] Clarity (U) Clear Clear [facility] Color (U) Dark Yellow Yellow [facility] Epithelial cells.squamous LM.HPF (Urine sed) [#/Area] Moderate Abnormal None /LPF [facility] Glucose Ql (U) Negative Negative mg/dL [facility] Hemoglobin Ql (U) Negative Negative [facility] Hyaline casts Auto (Urine sed) [#/Area] 5-10 None /LPF [facility] Interpretation and review of laboratory results Abnormal [facility] Ketones (U) [Mass/Vol] Trace Abnormal Negative mg/dL [facility] Leukocyte esterase Test strip Ql (U) Trace Abnormal Negative [facility] Nitrite Auto test strip Ql (U) Negative Negative [facility] pH (U) 8.5 [pH] Abnormal 4.5 - 8.[address] [facility] Protein (U) [Mass/Vol] 30 mg/dL Abnormal Negative [facility] RBC LM.HPF (Urine sed) [#/Area] 3-5 None /HPF [facility] Specific gravity (U) [Rel density] 1.025 [facility] Urobilinogen Ql (U) 1.0 mg/dL 0.2 - 1. 0 mg/dL [facility] WBC LM.HPF (Urine sed) [#/Area] 3-5 None /HPF [facility] ECG 12 lead - In ClinicOrder ed By: Afua Polk on 07-26-2022 [facility] Cytology report Cyto stain.t hin prep Doc (Cvx/Vag)on 01-26-2022 [facility] Urinalysis macro (dipstick) panel (U)Ordered By: Lloyd López on 10-05-2021 Bilirubin, UA Negative Negative [facility] Blood, UA Large Abnormal Negative [facility] Clarity, UA Cloudy [facility] Color, UA Yellow [facility] Glucose, UA Negative Negative [facility] Interpretation and review of laboratory results Abnormal [facility] Ketones (U) [Mass/Vol] Trace Abnormal Negative [facility] Leukocytes, UA Small Abnormal Negative [facility] Nitrite, UA Negative Negative [facility] pH, UA 6.0 [facility] Protein, UA [address] [facility] Spec Grav, UA 1.025 [facility] Urobilinogen, UA 1.0 0.2 - 1.0 [facility] DBT Breast - bilateral scree joseflorin 07-20-2021 No Digital Breast Tomosynthesis evidence for malignancy. Given patient's dense breast parenchyma, she may benefit from supplemental screening such as an automated breast ultrasound (ABUS) or screening breast MRI evaluation. BI-RADS Code: 1 - NEGATIVE RECOMMENDATION: Screening bilateral mammogram is recommended in 1 year. COMMENTS: Results of this examination will be immediately mailed to the patient. -------- FINAL REPORT -------- Dictated By: Lesa Hanna Dictated Date: 07/20/2021 11:18 Assigned Physician: Lesa Hanna Reviewed and Electronically Signed By: Lesa Hanna Signed Date: 07/20/2021 11:23 Workstation ID: [id number] Transcribed By: Self Edit Transcribed Date: 07/20/2021 11:18 POWERSCRIBE EXAMINATION TYPE: MG MAMMO DIGITAL SCREENING W KYREE BILAT DATE OF EXAM: 07/20/2021 9:45 AM PRIOR STUDIES: 2017 through 2019 REASON FOR STUDY: Screening exam. TECHNIQUE: Multiple low dose images were obtained in each projection. These low-dose images were reconstructed into 1 mm thick slices and reviewed on the soft copy workstation along with additional reconstructed standard digital bilateral mammogram images. Computer-aided detection utilizing [employer] reader has been performed. BREAST COMPOSITION: C - The breasts are heterogeneously dense which may obscure small masses. FINDINGS: There are no suspicious abnormalities. There has been no significant interval change. POWERSCRIBE Lesa Huff MD - 07/20/2021 EXAMINATION TYPE: MAMMO DIGITAL SCREENING W KYREE BILAT DATE OF EXAM: 07/20/2021 9:45 AM PRIOR STUDIES: 2017 through 2019 REASON FOR STUDY: Screening exam. TECHNIQUE: Multiple low dose images were obtained in each projection. These low-dose images were reconstructed into 1 mm thick slices and reviewed on the soft copy workstation along with additional reconstructed standard digital bilateral mammogram images. Computer-aided detection utilizing [employer] reader has been performed. BREAST COMPOSITION: C - The breasts are heterogeneously dense which may obscure small masses. FINDINGS: There are no suspicious abnormalities. There has been no significant interval change. IMPRESSION: No Digital Breast Tomosynthesis evidence for malignancy. Given patient's dense breast parenchyma, she may benefit from supplemental screening such as an automated breast ultrasound (ABUS) or screening breast MRI evaluation. BI-RADS Code: 1 - NEGATIVE RECOMMENDATION: Screening bilateral mammogram is recommended in 1 year. COMMENTS: Results of this examination will be immediately mailed to the patient. -------- FINAL REPORT -------- Dictated By: Lesa Hanna Dictated Date: 07/20/2021 11:18 Assigned Physician: Lesa Hanna Reviewed and Electronically Signed By: Lesa Hanna Signed Date: 07/20/2021 11:23 Workstation ID: [id number] Transcribed By: Self Edit Transcribed Date: 07/20/2021 11:18 [facility] Study observation (narrative) Hmizate[employer]ma DBT Breast - bilateral scree ningOrdered By: Leas Huff on 07-20-2021 [facility] Work Phone: [place] Mammo Digital Screen bila t w kyree(NB)on 05-13-2020 [place] Mammo Digital Screen bilat w kyree(NB) EXAMINATION TYPE: MS Mammo Digital Screen bilat w kyree(NB) DATE OF EXAM : 05/13/2020 8:44 AM Digital Breast Tomosynthesis Screening Mammogram with Computer Aided Detection PATIENT HISTORY: Menarche at age 16. First Full-Term at age 22. Premenopausal. Currently using Hormonal Contraceptives, for 11 years. PRIOR STUDIES: 05/01/2013, 05/23/2014, 01/20/2016, 02/13/2018, 03/29/2019 REASON FOR STUDY: Breast Screening. TECHNIQUE: Multiple low dose images were obtained in each projection. These low-dose images were reconstructed into 1 mm thick slices and reviewed on the soft copy workstation along with additional reconstructed standard digital bilateral mammogram images. Computer-aided detection utilizing Pocket [employer] reader has been performed. BREAST COMPOSITION: The breast tissue is heterogeneously dense, which may obscure small masses FINDINGS: There are no suspicious abnormalities. There has been no significant interval change. IMPRESSION: No Digital Breast Tomosynthesis evidence for malignancy. Given patient's dense breast parenchyma, she may benefit from supplemental screening such as an automated breast ultrasound (ABUS) or screening breast MRI evaluation. BI-RADS Code: 1-Negative RECOMMENDATION: 1. Screening Tomosynthesis in 1 year COMMENTS: Results of this examination will be immediately mailed to the patient. [facility] thanks you for the opportunity to care for your patient. Workstation ID: [id number] FINAL REPORT Dictated By: Lesa Huff MD 05/14/2020 11:04 Assigned Physician: Lesa Huff MD Reviewed and Electronically Signed By: Lesa Huff MD 05/14/2020 11:06 Transcribed by: SURAJ 05/14/2020 11:04 Technologist: PEGGY Normal [facility] [place] CULTURE, URINEon 04-26-2019 CULTURE, URINE --------- CULTURE, URINE: >100,000 COL/mL GRAM NEGATIVE BACILLI --------- Escherichia coli: Escherichia coli - ORGANISM ID 3.1 Isolated ORGANISM ID [id number] --------- ANTIBIOTIC RX STATUS --------- AMPICILLIN S F AMPICILLIN-SULBACTAM S F AMOX/CLAVULANIC ACID S F CEFTAZIDIME S F CIPROFLOXACIN S F CEFEPIME S F CEFTRIAXONE S F CEFAZOLIN S F ERTAPENEM S F NITROFURANTOIN S F GENTAMICIN S F IMIPENEM S F LEVOFLOXACIN S F PIPERACILLIN/TAZOBAC MEHTA S F TRIMETHOPRIM/SULFAME THOXAZOLE S F TOBRAMYCIN S F Normal [facility] Comment on above: Order Comment: Speci men to be collected later? N Performed By: #### C UR #### [facility] [place] [address] ER NOTEon 04-26-2019 ER NOTE [facility] EMERGENCY RECORD TRIAGE (MonApr 26, 2019 11:52 SMS1) PATIENT: NAME: Erica Ordaz, AGE: 48, GENDER: female, : Sat 1970, TIME OF GREET: MonApr 26, 2019 11:51, PREFERRED LANGUAGE: Syriac, SSN: [id number], Zip Code: [address], PHONE: [phone], , , Family MD: VANITA LIZARRAGA, MRSA/VRE - VERIFY: No, P/A DRUG SCREEN RQ?: NO, ADVANCED DIRECTIVES: No. ADMISSION: URGENCY: Urgent Care, DEPT: Urgent [facility] - [place], BED: WAITING. COMPLAINT: Pat Pt Sts Painfull Urination Blood In Urin. PREVIOUS VISIT ALLERGIES: NKDA. KNOWN ALLERGIES NKDA CURRENT MEDICATIONS (MonApr 26, 2019 12:02 RAB1) Probiotic Formula: Patient Dose: Unknown. HPI UTI (MonApr 26, 2019 12:14 MMR4) CHIEF COMPLAINT: Patient presents for evaluation of urinary tract infection signs or symptoms:, dysuria, hematuria. HISTORIAN: History provided by patient. States that starting yesterday she started to develop some burning with urination and frequency/urgency. reports being up all night and started to have some hematuria as well. States she does have some lower back pain, but unsure if related to sitting at work or UTI. Chills and nausea reported. She has tried taking AZO with little relief. QUALITY: burning. TIME COURSE: are intermittent, with urination. ASSOCIATED WITH FEMALE: associated abdominal pressure, associated chills, No associated diarrhea, No associated fever, No associated inability to tolerate oral fluids, associated nausea, No associated vomiting. EXACERBATED BY: Patient's condition exacerbated by urination. RELIEVED BY: Patient's condition relieved by nothing -tried AZO. ROS (MonApr 26, 2019 12:14 MMR4) CONSTITUTIONAL: Negative constitutional review of systems, Historian reports chills, Historian denies fatigue, Historian denies fever. CARDIOVASCULAR: Negative cardiovascular review of systems. RESPIRATORY: Negative respiratory review of systems. GI: Historian reports abdominal pain, Historian denies diarrhea, Historian reports nausea, Historian denies vomiting. GENITOURINARY FEMALE: Historian reports dysuria, Historian reports hematuria, Historian reports urgency. MUSCULOSKELETAL: Historian reports back pain. SKIN: Negative skin review of systems. NOTES: All systems reviewed, negative except as described Name: Erica Ordaz : 1970 F48 MedRec: [id number] AcctNum: [id number] Page 1 of [address] [facility] EMERGENCY RECORD above. PAST MEDICAL HISTORY MEDICAL HISTORY: Raynaud's disease. EXCERCISE INTRODUCED ASTHMA. (MonApr 26, 2019 12:02 RAB1) SURGICAL HISTORY: Patient's previous surgical history is not relevant to the case. (MonApr 26, 2019 12:02 RAB1) PSYCHIATRIC HISTORY: No previous psychiatric history. (MonApr 26, 2019 12:02 RAB1) SOCIAL HISTORY: Denies tobacco abuse, Denies drug abuse, Lives with others, Patient consumes alcohol socially. (MonApr 26, 2019 12:02 RAB1) FAMILY HISTORY: Family history is not contributory to this case. (MonApr 26, 2019 12:02 RAB1) NOTES: Nursing records reviewed, Agree with nursing records, Medication list reviewed. (MonApr 26, 2019 12:14 MMR4) PHYSICAL EXAM (MonApr 26, 2019 12:14 MMR4) CONSTITUTIONAL: Vital signs reviewed, Patient afebrile, Patient appears non toxic, Patient alert and oriented to person, place and time. RESPIRATORY CHEST: Respiratory and chest exam normal, Breath sounds clear. CARDIOVASCULAR: Cardiovascular assessment normal, Cardiovascular exam included findings of heart rate regular rate and rhythm, Heart sounds normal. ABDOMEN FEMALE: Abdominal exam included findings of abdomen nontender, Bowel sounds normal. BACK: Back exam normal, no tenderness, no costovertebral angle tenderness. SKIN: Skin exam included findings of skin warm, dry, and normal in color. DOCTOR NOTES (MonApr 26, 2019 12:16 MMR4) NOTES: Macrobid x 10 days, pyridium, push fluids Will culture urine patient to follow up with PCP for recheck of urine in 1 week, or return to if worsening despite treatment over next 1-2 days She agrees to plan. VITAL SIGNS (MonApr 26, 2019 11:56 RMQ) VITAL SIGNS: BP: 130/87, Pulse: 66, Resp: 18, Temp: 98.9, Pain: 0, O2 sat: 98 on (RA). EVENTS ATTENDING: LAMBERTO Villeda Megan M saw the patient at MonApr 26, 2019 11:59. (MonApr 26, 2019 11:59 MMR4) TRANSFER: Triage to Urgent Care - [facility]. (MonApr 26, 2019 11:52 SMS1) Urgent Care - [place] Waiting [facility] to Urgent Care [facility] 10. (MonApr 26, 2019 11:57 RMQ) Name: Erica Ordaz : 1970 F48 MedRec: [id number] AcctNum: [id number] Page 2 of [address] [facility] EMERGENCY RECORD Removed from Urgent [facility] - [place] Urgent Care [facility] 10. (MonApr 26, 2019 12:27 RAB1) NURSING PROCEDURE: BEDSIDE TESTING (MonApr 26, 2019 12:14 RAB1) PATIENT IDENTIFIER: Patient's identity verified by patient stating name, Patient's identity verified by patient stating date. URINE DIP: Urine dip indicated for urinary symptoms, Urine dip results include: Positive for leukocytes, +, Negative for nitrites, urobilinogen, protein. Positive for blood, moderate, Negative for ketones, bilirubin, glucose. 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 NOTES: Patient tolerated procedure well. NURSING PROCEDURE: DISCHARGE NOTE (MonApr 26, 2019 12:26 RAB1) DISCHARGE: Patient discharged to home, ambulating without assistance, driving self, unaccompanied, Summary of Care printed/ provided, Transition record given to patient, Discharge instructions given to patient, Simple or moderate discharge teaching performed, Prescriptions given and instructions on side effects given, Above person(s) verbalized understanding of discharge instructions and follow-up care, Patient treated and evaluated by physician. TIME: No Barriers to Learning, Explained DCI, Handouts given for DCI, Patient Receptive to DCI, Cooperative with DCI. NOTES: Patient tolerated procedure well. NURSING PROCEDURE: NURSE NOTES (MonApr 26, 2019 12:06 RAB1) NURSES NOTES: Notes: PT ARRIVES TO ROOM 10. PT C/O PAINFUL URINATION, BLOOD IN URINE, FREQUENT URINATION X ONE DAY. PT DENIES ANY FEVERS AT THIS TIME. PT TOOK AZO WITH LITTLE RELIEF. ORDERS POC Urine Dip, perform: Ordered by: LAMBERTO Villeda Megan M Ordered for: LAMBERTO Villeda Megan M Status: Done by: Mojgan Zaman L.P.N MonApr 26, 2019 12:07. (MonApr 26, 2019 11:59 MMR4) CULTURE, URINE: Ordered by: LAMBERTO Villeda Megan M Ordered for: LAMBERTO Villeda Megan M Status: Active. (MonApr 26, 2019 12:19 MMR4) ORDER DETAILS Order Name: CULTURE, URINE, Status: Active, Time: 12:19 04/26/2019, User: LAMBERTO Villeda Megan M, - Ordered for: LAMBERTO Villeda Megan M, - Entered by: LAMBERTO Villeda Megan M - MonApr 26, 2019 12:19, - Quantity: 1, Order Name: POC Urine Dip, perform, Status: Done, Time: 12:07 04/26/2019, User: LAMBERTO Villeda Megan M, Name: Erica Ordaz : 1970 F48 MedRec: [id number] AcctNum: [id number] Page 3 of [address] [facility] EMERGENCY RECORD - Ordered for: LAMBERTO Villeda Megan M, - Entered by: LAMBERTO Villeda Megan M - MonApr 26, 2019 11:59, - Quantity: 1. DIAGNOSIS (MonApr 26, 2019 12:17 MMR4) FINAL: PRIMARY: UTI. DISPOSITION PATIENT: Disposition: 01 Home or Self Care, Condition: GOOD. (MonApr 26, 2019 12:17 MMR4) Patient left the department. (MonApr 26, 2019 12:27 RAB1) INSTRUCTION (MonApr 26, 2019 12:18 MMR4) DISCHARGE: URINARY TRACT INFECTION. FOLLOWUP: MD DIOGO, VANITA Hernandez, , [facility], [address] [address], , Follow up with Primary Care Physician In one week. PRESCRIPTION (MonApr 26, 2019 12:18 MMR4) Pyridium: tablet : 100 mg : oral : Quantity: 1 Unit: tab(s). Route: oral. Schedule: three times a day as needed. Dispense: 20 Unit: tab(s). May substitute. Refills: No Refills Notes: , No Refills May fill with generic unless noted KHRIS. Macrobid: capsule : macrocrystals-monohy drate 100 mg : oral : Quantity: 1 Unit: cap(s). Route: oral. Schedule: twice a day. Dispense: 20 Unit: cap(s). May substitute. Refills: No Refills Notes: , No Refills May fill with generic unless noted KHRIS. CALL BACK (MonApr 28, 2019 10:36 BAM4) CALL BACK: Status: Positive Culture; COMPLETED. PHARMACY CALL BACK: Culture Source: CC Urine, Bacteria Identified: E. coli, Amount of Growth: >100k, Antibiotics given in the ED: none, Antimicrobials prescribed on discharge: Macrobid 100mg BID x10 days, Culture sensitivity to Antimicrobial therapy: Sensitive, Diagnosis: UTI, Cystitis, Per Pharmacist Consult Agreement: no further treatment., Per Prescriber: LENA Shabazz. ADMIN DIGITAL SIGNATURE: LAMBERTO Villeda Megan M. (MonApr 26, 2019 12:20 MMR4) Methgweny, RT, Raiya. (MonApr 26, 2019 16:53 RMQ) PHARM. Taqueria Holloway, Kleley Amaro (MonApr 28, 2019 10:37 BAM4) Austyn L.P.N, Mojgan. ([facility] Jun 29, 2019 09:34 RAB1) PATIENT DATA CHANGE: Game Programer changed from (none) to Raiya Name: Erica Ordaz Michael : 1970 8 MedRec: [id number] AcctNum: [id number] Page 4 of [address] [facility] EMERGENCY RECORD Rene, RT. (MonApr 26, 2019 11:56 RMQ) KG Weight: 55.79 (est.). (MonApr 26, 2019 11:56 RMQ) Primary Nurse changed from (none) to Mojgan Zaman L.P.N. (MonApr 26, 2019 11:58 RAB1) Attending changed from (none) to Yolanda Villeda CNP. (MonApr 26, 2019 11:59 MMR4) [place]: BAM4=PHARM. Taqueria Holloway, Kelley Amaro MMR4=LAMBERTO Villeda Megan M RAB1=Austyn L.P.N, Mojgan RMQ=Methashwin, RT, Raiya SMS1=SOFY Lizarraga Sydney M. Name: Erica Ordaz Michael : 1970 F48 MedRec: [id number] AcctNum: [id number] Page 5 of 5 Normal [facility] Vital Signs Date Time Vital Sign Value Performing Clinician Kori lima 03-10-2025 09:33-0400 Body height 162.6 cm Kourtney NICHOLSON Work Phone: [place] [facility] 03-10-2025 09:33-0400 Body mass index (BMI) [Ratio] 22.66 kg/m2 Kourtney Pak CNM Work Phone: [facility] 03-10-2025 09:33-0400 Body weight 59.88 kg Kourtney Pak CN M Work Phone: [facility] 03-10-2025 09:33-0400 Diastolic blood pressure 72 mm[Hg] Kourtney Pak CNM Work Phone: [facility] 03-10-2025 09:33-0400 Systolic blood pressure 124 mm[Hg] Kourtney Pak CNM Work Phone: [facility] 01-20-2025 10:11-0400 Body height 162.6 cm Vanita Lizarraga MD Work Phone: [place] [facility] [employer] 01-20-2025 10:11-0400 Body mass index (BMI) [Ratio] 22.62 kg/m2 Vanita Lizarraga MD Work Phone: [place] [facility] [employer] 01-20-2025 10:11-0400 Body temperature 97.9 [degF] Vanita Lizarraga MD Work Phone: [place] [facility] [employer] 01-20-2025 10:11-0400 Body weight 59.78 kg Vanita Lizarraga MD Work Phone: [facility] [facility] [employer] 01-20-2025 10:11-0400 Diastolic blood pressure 80 mm[Hg] Vanita Lizarraga MD Work Phone: [place] [facility] [employer] 01-20-2025 10:11-0400 Heart rate 57 /min Vanita Lizarraga MD Work Phone: [place] [facility] [employer] 01-20-2025 10:11-0400 SaO2% (BldA) [Mass fraction] 97 % Vanita Lizarraga MD Work Phone: [facility] [employer] 01-20-2025 10:11-0400 Systolic blood pressure 112 mm[Hg] Vanita Lizarraga MD Work Phone: [facility] [facility] [employer] 02-14-2024 09:38-0400 Body height 162.6 cm Caterina Lewis NP Work Phone: [facility] 02-14-2024 09:38-0400 Body mass index (BMI) [Ratio] 20.94 kg/m2 Caterina Lewis POLICY SPECIALIST Work Phone: [facility] 02-14-2024 09:38-0400 Body weight 55.34 kg Caterina Lewis POLICY SPECIALIST Work Phone: [facility] 02-14-2024 09:38-0400 Diastolic blood pressure 72 mm[Hg] Caterina Lewis POLICY SPECIALIST Work Phone: [facility] 02-14-2024 09:38-0400 Systolic blood pressure 118 mm[Hg] Caterina Lewis POLICY SPECIALIST Work Phone: [facility] 07-05-2023 09:30-0500 Body height 160 cm Sage Claudio MD Work Phone: [facility] [employer] 07-05-2023 09:30-0500 Body mass index (BMI) [Ratio] 22.32 kg/m2 Sage Claudio MD Work Phone: [facility] [employer] 07-05-2023 09:30-0500 Body temperature 97.59 [degF] Sage Claudio MD Work Phone: [facility] [employer] 07-05-2023 09:30-0500 Body weight 57.15 kg Sage Claudio MD Work Phone: [facility] [employer] 02-08-2023 10:07-0400 Body height 162.6 cm Caterina Lewis POLICY SPECIALIST Work Phone: [facility] 02-08-2023 10:07-0400 Body mass index (BMI) [Ratio] 21.63 kg/m2 Caterina Lewis POLICY SPECIALIST Work Phone: [facility] 02-08-2023 10:07-0400 Body weight 57.15 kg Caterina Lewis POLICY SPECIALIST Work Phone: [facility] 02-08-2023 10:07-0400 Diastolic blood pressure 74 mm[Hg] Caterina Lewis POLICY SPECIALIST Work Phone: [place] [facility] 02-08-2023 10:07-0400 Systolic blood pressure 120 mm[Hg] Caterina Lewis POLICY SPECIALIST Work Phone: [facility] 01-11-2023 08:15-0400 Body height 160 cm Vanita Lizarraga MD Work Phone: [facility] [employer] 01-11-2023 08:15-0400 Body mass index (BMI) [Ratio] 22.5 kg/m2 Vanita Lizarraga MD Work Phone: [facility] [employer] 01-11-2023 08:15-0400 Body temperature 99 [degF] Vanita Lizarraga MD Work Phone: [facility] [employer] 01-11-2023 08:15-0400 Body weight 57.61 kg Vanita Lizarraga MD Work Phone: [facility] [employer] 01-11-2023 08:15-0400 Diastolic blood pressure 80 mm[Hg] Vanita Lizarraga MD Work Phone: [facility] [employer] 01-11-2023 08:15-0400 Heart rate 66 /min Vanita Lizarraga MD Work Phone: [facility] [employer] 01-11-2023 08:15-0400 SaO2% (BldA) [Mass fraction] 98 % Vanita Lizarraga MD Work Phone: [facility] [employer] 01-11-2023 08:15-0400 Systolic blood pressure 140 mm[Hg] Vanita Lizarraga MD Work Phone: [facility] 07-26-2022 14:01-0400 Body height 160 cm Vanita Lizarraga MD Work Phone: [facility] 07-26-2022 14:01-0400 Body mass index (BMI) [Ratio] 23.21 kg/m2 Vanita Lizarraga MD Work Phone: [facility] 07-26-2022 14:01-0400 Body temperature 98.6 [degF] Vanita Lizarraga MD Work Phone: [facility] [employer] 07-26-2022 14:01-0400 Body weight 59.42 kg Vanita Lizarraga MD Work Phone: [facility] [employer] 07-26-2022 14:01-0400 Diastolic blood pressure 82 mm[Hg] Vanita Lizarraga MD Work Phone: [facility] [employer] 07-26-2022 14:01-0400 Heart rate 58 /min Vanita Lizarraga MD Work Phone: [facility] [employer] 07-26-2022 14:01-0400 SaO2% (BldA) [Mass fraction] 99 % Vanita Lizarraga MD Work Phone: [facility] [employer] 07-26-2022 14:01-0400 Systolic blood pressure 140 mm[Hg] Vanita Lizarraga MD Work Phone: [facility] [employer] 01-10-2022 14:10-0400 Body height 160 cm Vanita Lizarraga MD Work Phone: [facility] [employer] 01-10-2022 14:10-0400 Body mass index (BMI) [Ratio] 22.9 kg/m2 Vanita Lizarraga MD Work Phone: [facility] [employer] 01-10-2022 14:10-0400 Body temperature 98.29 [degF] Vanita Lizarraga MD Work Phone: [facility] [employer] 01-10-2022 14:10-0400 Body weight 58.65 kg Vanita Lizarraga MD Work Phone: [facility] [employer] 01-10-2022 14:10-0400 Diastolic blood pressure 88 mm[Hg] Vanita Lizarraga MD Work Phone: [facility] 01-10-2022 14:10-0400 Heart rate 76 /min Vanita Lizarraga MD Work Phone: [facility] [employer] 01-10-2022 14:10-0400 SaO2% (BldA) [Mass fraction] 97 % Vanita Lizarraga MD Work Phone: [facility] 01-10-2022 14:10-0400 Systolic blood pressure 130 mm[Hg] Vanita Lizarraga MD Work Phone: [facility] 10-05-2021 11:28-0400 Body temperature 97.7 [degF] Yobani Cronin MD Work Phone: [facility] 10-05-2021 11:28-0400 Body weight 59.88 kg Yobani Cronin MD Work Phone: [facility] 10-05-2021 11:28-0400 Diastolic blood pressure 88 mm[Hg] Yobani Cronin MD Work Phone: [facility] 10-05-2021 11:28-0400 Heart rate 71 /min Yobani Cronin MD Work Phone: [facility] 10-05-2021 11:28-0400 Respiratory rate 19 /min Yobani Cronin MD Work Phone: [facility] 10-05-2021 11:28-0400 SaO2% (BldA) [Mass fraction] 100 % Yobani Cronin MD Work Phone: [facility] 10-05-2021 11:28-0400 Systolic blood pressure 136 mm[Hg] Yobani Cronin MD Work Phone: [facility] Encounters Encounter Date Encounter Type Care Provider Facility Start: 03-10-2025 Encounter for gynecological examination (general) (routine) without abnormal findings [facility]OURTNEY PAK [facility] Start: 03-10-2025 End: 03-10-2025 ambulatory KOURTNEY PAK [facility] Start: 03-10-2025 End: 03-10-2025 Patient encounter procedure Kourtney Pak CNM Work Phone: [facility] Start: 03-10-2025 End: 03-10-2025 Patient encounter status Kourtney Pak [facility] Work Phone: [facility] Work Phone: Start: 03-10-2025 End: 03-10-2025 Periodic preventive med est patient 40-64yrs Kourtney Pak CNM Work Phone: [facility] Comment on above: Encounter for gyneco logical examination without abnormal finding (Primary Dx); IUD check up Start: 01-20-2025 End: 01-20-2025 ambulatory VANITA LIZARRAGA [facility] Start: 01-20-2025 End: 01-20-2025 Patient encounter status Vanita Lizarraga MD Work Phone: [facility] Start: 01-20-2025 End: 01-20-2025 Periodic preventive med est patient 40-64yrs Vanita Lizarraga MD Work Phone: [facility] Comment on above: Primary hypertension (Primary Dx); Screening, lipid; Exercise induced bronchospasm; Well adult exam Start: 08-22-2024 ambulatory SELFREFERRAL~1 [id number] CEPL CEPL SELFREFERRAL [facility] Start: 08-22-2024 End: 08-22-2024 Evaluation and management of inpatient [facility] 1 Start: 08-22-2024 End: 08-22-2024 Subsequent hospital visit by physician [facility] Comment on above: Encounter for screen ing mammogram for breast cancer Start: 02-14-2024 End: 02-14-2024 Patient encounter procedure Caterina Lewis NP Work Phone: [facility] Start: 02-14-2024 End: 02-14-2024 Periodic preventive med est patient 40-64yrs Caterina Lewis POLICY SPECIALIST Work Phone: [facility] Comment on above: Encounter for annual routine gynecological examination (Primary Dx) Start: 08-21-2023 End: 08-21-2023 Evaluation and management of inpatient [facility] 3 Start: 08-21-2023 End: 08-21-2023 Subsequent hospital visit by physician [facility] Comment on above: Encounter for screen ing mammogram for breast cancer Start: 07-31-2023 End: 07-31-2023 Postop follow up visit related to original px Sage Claudio MD Work Phone: [facility] Comment on above: Umbilical hernia wit hout obstruction and without gangrene (Primary Dx); Postop check Start: 07-05-2023 End: 07-05-2023 Subsequent hospital visit by physician Cosmo Carrasco [facility] Comment on above: Umbilical hernia wit hout obstruction and without gangrene Start: 07-05-2023 End: 07-05-2023 Office consultation new/estab patient 60 min Sage Claudio MD Work Phone: [facility] Comment on above: Umbilical hernia wit hout obstruction and without gangrene (Primary Dx) Start: 02-08-2023 End: 02-08-2023 Patient encounter procedure Caterina Lewis NP Work Phone: [facility] Start: 02-08-2023 End: 02-08-2023 Periodic preventive med est patient 40-64yrs Caterina Lewis NP Work Phone: [facility] Comment on above: Encounter for annual routine gynecological examination (Primary Dx) Start: 01-20-2023 End: 01-20-2023 Subsequent hospital visit by physician [email or web address] [facility] [place] Comment on above: Arrived Start: 01-11-2023 End: 01-11-2023 Patient encounter status Vanita Lizarraga MD Work Phone: [facility] Start: 01-11-2023 End: 01-11-2023 Periodic preventive med est patient 40-64yrs Vanita Lizarraga MD Work Phone: [facility] Comment on above: Primary hypertension (Primary Dx); Well adult exam; Need for vaccination Start: 08-05-2022 End: 08-05-2022 Evaluation and management of inpatient [facility] Stereo 1 Start: 08-05-2022 End: 08-05-2022 Subsequent hospital visit by physician Scotmo 1 Comment on above: Screening mammogram for breast cancer Start: 07-26-2022 End: 07-26-2022 Office outpatient visit 15 minutes Vanita Lizarraga MD Work Phone: [facility] Comment on above: Primary hypertension (Primary Dx); Exercise induced bronchospasm; Screening mammogram for breast cancer Start: 01-19-2022 Refill Anirudh quan MD Work Phone: [facility] Start: 01-19-2022 Refill Anirudh quan MD Work Phone: [facility] Start: 01-19-2022 Telephone encounter Anirudh mayers MD Work Phone: [facility] Start: 01-10-2022 End: 01-10-2022 Patient encounter status Vanita Lizarraga MD Work Phone: [facility] Start: 01-10-2022 End: 01-10-2022 Periodic preventive med est patient 40-64yrs Vanita Lizarraga MD Work Phone: [facility] Comment on above: Screen for colon can cer (Primary Dx); Screening for diabetes mellitus; Screening, lipid; Well adult exam Start: 10-05-2021 End: 10-05-2021 Office outpatient visit 15 minutes Yobani Cronin MD Work Phone: [facility] Comment on above: Acute cystitis with hematuria (Primary Dx); Mild intermittent asthma, unspecified whether complicated Start: 07-20-2021 End: 07-20-2021 Evaluation and management of inpatient [facility] 3 Start: 07-20-2021 End: 07-20-2021 Subsequent hospital visit by physician [facility]Emo 3 Comment on above: Encounter for screen ing mammogram for breast cancer Procedures Date Procedure Procedure Detail Performing Clinician Start: 08-22-2024 Mammography Vanita johnson MD Work Phone: Start: 01-17-2024 Adult depression screening assessment [facility] 1 Start: 01-17-2024 Lipid 1996 panel - S martell or Plasma Vanita Lizarraga MD Work Phone: Start: 08-21-2023 Screening mammograph y bi 2-view breast inc cad Selfreferral Cepl Start: 07-05-2023 Ecg routine ecg w/le ast 12 lds trcg only w/o i&r Sage Claudio MD Work Phone: Start: 01-20-2023 Radex foot complete minimum 3 views Margarito Patrick PA-C Work Phone: Start: 01-11-2023 Adult depression screening assessment Caterina Lewis POLICY SPECIALIST Work Phone: Start: 08-05-2022 Mammography Vanita johnson MD Work Phone: Start: 07-27-2022 Lipid 1996 panel - S martell or Plasma Vanita Lizarraga MD Work Phone: Start: 07-26-2022 Ecg routine ecg w/le ast 12 lds w/i&r Vanita Lizarraga MD Work Phone: Start: 02-25-2022 Colonoscopy Vanita johnson MD Work Phone: Start: 02-21-2022 Colonoscopy Vanita johnson MD Work Phone: Start: 01-26-2022 Microscopic observat ion [Identifier] in Cervix by Cyto stain Vanita Lizarraga MD Work Phone: Start: 01-26-2022 Cytp cerv/vag auto t hin layer prep mnl screen Historical Provider Work Phone: Start: 10-05-2021 Urnls dip stick/tabl et rgnt auto w/o microscopy Yobani Cronin MD Work Phone: Start: 07-20-2021 End: 07-20-2021 Screening mammography bi 2-view breast inc cad Selfreferral Cepl Plan of Treatment Date Care Activity Detail Author Start: 01-11-2033 DTaP,Tdap,and Td Vaccines (3 - Td or Tdap) DTaP,Tdap,and Td Vaccines (3 - Td or Tdap) [facility] Start: 01-11-2033 DTaP/Tdap/Td Vaccine s (3 - Td or Tdap) DTaP/Tdap/Td Vaccines (3 - Td or Tdap) [facility] Start: 2032 Respiratory Syncytia l Virus (RSV) Immunization Age 60+ Years (1 - 1-dose 60+ series) Respiratory Syncytial Virus (RSV) Immunization Age 60+ Years (1 - 1-dose 60+ series) [facility] Start: 02-26-2032 Screening for malign ant neoplasm of colon [facility] Start: 02-22-2032 Screening for malign ant neoplasm of colon [facility] Start: 01-16-2029 Lipid panel [facility] Start: 07-28-2027 Lipid panel [facility] Start: 01-26-2027 Screening for malign ant neoplasm of cervix [facility] Start: 08-22-2026 Screening for malign ant neoplasm of breast Breast Cancer Screening [facility] Start: 03-16-2026 End: 03-16-2026 Patient encounter procedure 03/16/2026 9:30 AM EST Office Visit [facility] [address] [place] [address] Kourtney Pak CNM [address] [facility] [address] [place] [address] [facility] Start: 03-10-2026 Social Influencers o f Health Screening Social Influencers of Health Screening [facility] Start: 01-21-2026 End: 01-21-2026 Patient encounter procedure 01/21/2026 8:00 AM EDT [facility] [place] [address] Vanita Lizarraga MD [facility] [address] [place] [phone] [facility] Start: 01-20-2026 Annual PHQ-2/9 Screening Staci michael PHQ-2/[address] [facility] Start: 08-22-2025 Screening for malign ant neoplasm of breast Mammogram [facility] Start: 08-20-2025 Screening for malign ant neoplasm of breast Breast Cancer Screening [facility] Start: 02-20-2025 End: 02-20-2025 Patient encounter procedure 02/20/2025 9:00 AM EDT Office Visit Francisco MEJÍAFlorin Lyons [address] [place] [phone] Caterina Lewis NP [address] [place] [address] Francisco Ray Start: 02-13-2025 Social Influencers o f Health Screening Social Influencers of Health Screening [facility] Start: 01-26-2025 Screening for malign ant neoplasm of cervix Cervical Cancer Screening: Pap Smear [facility] Start: 01-21-2025 End: 01-20-2026 CBC W Auto Differential panel - Blood CBC auto differential Lab Routine Primary hypertension Expected: 01/21/2025, Expires: 01/20/2026 [facility] Comment on above: Expected: 01/21/2025 , Expires: 01/20/2026 Start: 01-21-2025 End: 01-20-2026 Comprehensive metabolic 1998 panel - Serum or Plasma Comprehensive metabolic panel Lab Routine Primary hypertension Expected: 01/21/2025, Expires: 01/20/2026 [facility] Comment on above: Expected: 01/21/2025 , Expires: 01/20/2026 Start: 01-21-2025 End: 01-20-2026 Lipid 1996 panel - Serum or Plasma Lipid panel Lab Routine Screening, lipid Expected: 01/21/2025, Expires: 01/20/2026 [facility] Work Phone: Comment on above: Expected: 01/21/2025 , Expires: 01/20/2026 Start: 01-16-2025 Adolescent depressio n screening assessment Depression Screening [facility] Start: 01-16-2025 Hypertension/CHF/CAD Annual BMP Blood Test Hypertension/CHF/CAD Annual BMP Blood Test [facility] Start: 01-13-2025 COVID-19 Vaccine ( season) COVID-[address] () [facility] Start: 01-13-2025 Influenza vaccination Influenza Vacc ine (#1) [facility] Start: 08-05-2024 Screening for malign ant neoplasm of breast Breast Cancer Screening [facility] Start: 07-05-2024 Hypertension/CHF/CAD Annual BMP Blood Test Hypertension/CHF/CAD Annual BMP Blood Test [facility] Start: 05-15-2024 Depression Screening Depression Scre ening [facility] Start: 02-14-2024 End: 02-14-2024 Patient encounter procedure 02/14/2024 9:30 AM EDT Office Visit [facility] KENDY Lyons [address] [place] [phone] Caterina Lewis NP [address] [place] [address] [facility] ROS[facility]NI [facility] Start: 01-17-2024 End: 01-17-2024 Patient encounter procedure 01/17/2024 10:00 AM [place] [address] Vanita Lizarraga MD [facility] [address] [place] [address] [facility] Start: 01-14-2024 COVID-19 Vaccine ( season) COVID-19 Vaccine ( season) [facility] Start: 01-14-2024 COVID-19 Vaccine ( season) COVID-19 Vaccine ( season) [facility] Start: 01-14-2024 Influenza vaccination Influenza Vacc ine (#1) [facility] Start: 01-12-2024 Adolescent depressio n screening assessment Depression Screening [facility] Start: 01-12-2024 Annual PHQ-2/9 Screening Kaseyjose michael PHQ-2/[address] [facility] Start: 08-06-2023 Screening for malign ant neoplasm of breast Mammogram [facility] Start: 07-27-2023 End: 07-27-2023 Patient encounter procedure 07/27/2023 8:45 AM EDT Office Visit [address] [address] Sage Claudio MD [address] [place] [phone] [facility] Start: 07-18-2023 End: 07-18-2023 Admission to same day surgery center 07/18/2023 10:15 AM EST - 07/18/2023 11:40 AM EST Surgery [facility] Outpatient Surgery [address] [place] [phone] Sage Claudio MD [address] [place] [phone] HERNIA REPAIR,UMBILICAL [72357 (CPT )] [facility] Outpatient Surgery Comment on above: HERNIA REPAIR,UMBILI ABDIEL [92336 (CPT )] Start: 07-18-2023 End: 07-18-2023 OPEN INITIAL UMBILICAL HERNIA REPAIR LESS THAN 3CM; REDUCIBLE (MESH INCLUDED) OPEN INITIAL UMBILICAL HERNIA REPAIR LESS THAN 3CM; REDUCIBLE (MESH INCLUDED) Umbilical hernia without obstruction and without gangrene 07/18/2023 10:15 AM EST LM OR Start: 07-18-2023 Subsequent hospital visit by physician 07/18/2023 10:15 AM EST Hospital Encounter [facility] Outpatient Surgery [address] [place] [address] Sage Claudio MD [address] [place] [address] Preoperative clearance (Primary Dx) [facility] Outpatient Surgery Comment on above: Preoperative clearan ce (Primary Dx) Start: 07-06-2023 End: 07-06-2023 Admission to establishment 07/06/2023 8:00 AM EST Pre-Admission Testing [facility] Pre-Admission Testing [address] [place] [address] [facility] Start: 03-13-2023 DTaP,Tdap,and Td Vaccines (2 - Td or Tdap) DTaP,Tdap,and Td Vaccines (2 - Td or Tdap) [facility] Start: 03-13-2023 DTaP/Tdap/Td Vaccine s (2 - Td or Tdap) DTaP/Tdap/Td Vaccines (2 - Td or Tdap) [facility] Start: 01-13-2023 COVID-19 Vaccine (2022- season) COVID-19 Vaccine ( season) [facility] Start: 01-13-2023 Influenza vaccination Influenza Vacc ine (#1) [facility] Start: 01-11-2023 End: 01-11-2023 Patient encounter procedure 01/11/2023 Office Visit Family Medicine Vanita Lizarraga MD [address] [facility] [address] [place] [address] [facility] Start: 01-10-2023 Pneumococcal Vaccine : Pediatrics (0 to 5 Years) and At-Risk Patients (6 to 64 Years) (1 - PCV) Pneumococcal Vaccine: Pediatrics (0 to 5 Years) and At-Risk Patients (6 to 64 Years) (1 - PCV) [facility] Comment on above: Postponed from 09/30 (Other Medical Reasons) Start: 01-10-2023 Pneumococcal Vaccine : Pediatrics and At-Risk Patients to 64 Years (1 - PCV) Pneumococcal Vaccine: Pediatrics and At-Risk Patients to 64 Years (1 - PCV) [facility] Comment on above: Postponed from 09/30 (Other Medical Reasons) Start: 2022 RSV Immunization Hansel lt Patients (1 - Risk 50-74 years 1-dose series) RSV Immunization Adult Patients (1 - Risk 50-74 years 1-dose series) [facility] Start: 2022 Zoster Vaccines (1 of 2) Zoste r Vaccines (1 of 2) [facility] Start: 08-05-2022 Hypertension/CHF/CAD Annual BMP Blood Test Hypertension/CHF/CAD Annual BMP Blood Test [facility] Start: 07-26-2022 End: 07-27-2023 DBT Breast - bilateral screening BI MAMMOGRAM SCREENING TOMOSYNTHESIS BILATERAL Imaging Routine Screening Mammogram For Breast Cancer Expected: 07/26/2022 (Approximate), Expires: 07/27/[address]23 [facility] Work Phone: Comment on above: Expected: 07/26/2022 (Approximate), Expires: 07/27/2023 Start: 07-20-2022 Screening for malign ant neoplasm of breast Mammogram [facility] Start: 01-13-2022 Influenza vaccination Influenza Vacc ine (#1) [facility] Start: 12-20-2021 End: 12-20-2021 Patient encounter procedure 12/20/2021 Office Visit Family Medicine Vanita Lizarraga MD [address] [facility] [address] [place] [address] [facility] Start: 02-23-2021 COVID-19 Vaccine (3 - Booster for Pfizer series) COVID-19 Vaccine (3 - Booster for Pfizer series) [facility] Start: 01-24-2021 COVID-19 Vaccine (3 - Booster for Pfizer series) COVID-19 Vaccine (3 - Booster for Pfizer series) [facility] Start: 10-19-2020 COVID-19 Vaccine (3 - Booster for Pfizer series) COVID-19 Vaccine (3 - Booster for Pfizer series) [facility] Start: 10-19-2020 COVID-19 Vaccine (3 - Pfizer series) COVID-19 Vaccine (3 - Pfizer series) [facility] Start: 06-23-2019 Adolescent depressio n screening assessment Depression Screening [facility] Start: 06-23-2019 Hepatitis C screening Hepatitis C Sc reening [facility] Start: 06-23-2019 HIV screening HIV Screening [facility] Start: 06-23-2019 Lipid panel Cholesterol Sc reening (Lipid Panel) [facility] Start: 06-23-2019 Screening for malign ant neoplasm of colon Colorectal Cancer Screening: Colonoscopy [facility] Start: 06-23-2019 Social Influencers o f Health Screening Social Influencers of Health Screening [facility] Start: 2002 HPV/Cotest HPV/Cotest [facility] Start: 2002 Screening for malign ant neoplasm of cervix [facility] Start: 1993 Screening for malign ant neoplasm of cervix [facility] Start: 10-01-1991 DTaP,Tdap,and Td Vaccines (1 - Tdap) DTaP,Tdap,and Td Vaccines (1 - Tdap) [facility] Start: 10-01-1991 Hepatitis B Vaccines (1 of 3 - 19+ 3-dose series) Hepatitis B Vaccines (1 of 3 - 19+ 3-dose series) [facility] Start: 10-01-1991 Pneumococcal Vaccine : 50+ Years (1 of 2 - PCV) Pneumococcal Vaccine: 50+ Years (1 of 2 - PCV) [facility] Start: 10-01-1991 Pneumococcal Vaccine : Pediatrics (0 to 5 Years) and At-Risk Patients (6 to 64 Years) (1 of 2 - PCV) Pneumococcal Vaccine: Pediatrics (0 to 5 Years) and At-Risk Patients (6 to 64 Years) (1 of 2 - PCV) [facility] Start: 1978 Pneumococcal Vaccine : Pediatrics (0 to 5 Years) and At-Risk Patients (6 to 64 Years) (1 of 2 - PCV) Pneumococcal Vaccine: Pediatrics (0 to 5 Years) and At-Risk Patients (6 to 64 Years) (1 of 2 - PCV) [facility] Start: 1978 Pneumococcal Vaccine : Pediatrics (0 to 5 Years) and At-Risk Patients (6 to 64 Years) (1 of 2 - PPSV23) Pneumococcal Vaccine: Pediatrics (0 to 5 Years) and At-Risk Patients (6 to 64 Years) (1 of 2 - PPSV23) [facility] Start: 1978 Pneumococcal Vaccine : Pediatrics and At-Risk Patients to 64 Years (1 of 2 - PCV) Pneumococcal Vaccine: Pediatrics and At-Risk Patients to 64 Years (1 of 2 - PCV) [facility] Start: 1972 Hepatitis B Vaccines (1 of 3 - 3-dose series) Hepatitis B Vaccines (1 of 3 - 3-dose series) [facility] Start: 1972 Hepatitis C screening Hepatitis C Sc reening [facility] Start: 1972 HIV screening HIV Screening [facility] Start: 1972 Screening for malign ant neoplasm of colon [facility] Bacteria identified in Urine by Culture Urine culture Microbiology Routine Acute cystitis with hematuria 10/05/2021 11:[address] [facility] Work Phone: End: 01-10-2023 Comprehensive metabolic 1998 panel - Serum or Plasma Comprehensive metabolic panel Lab Routine Screening for diabetes mellitus 1 Occurrences starting 01/10/2022 until 01/10/2023 [facility] Comment on above: 1 Occurrences starti ng 01/10/2022 until 01/10/2023 End: 08-05-2022 DBT Breast - bilateral screening [facility] Work Phone: Comment on above: Once for 1 Occurrenc es starting 08/05/2022 until 08/05/2022 End: 07-15-2025 DBT Breast - bilateral screening MG Mammo Digital Screening w Kyree bilat Imaging Routine Encounter for screening mammogram for breast cancer 1 Occurrences starting 07/15/2024 until 07/15/2025 [facility] Comment on above: 1 Occurrences starti ng 07/15/2024 until 07/15/2025 End: 08-22-2024 DBT Breast - bilateral screening [facility] Comment on above: Once for 1 Occurrenc es starting 08/22/2024 until 08/22/2024 ECG 12 lead ECG 12 lead ECG Routine Umbilical hernia without obstruction and without gangrene 07/05/2023 1:12 PM EST [facility] [employer] Work Phone: End: 01-10-2023 Lipid 1996 panel - Serum or Plasma Lipid panel Lab Routine Screening, lipid 1 Occurrences starting 01/10/2022 until 01/10/2023 [facility] Work Phone: Comment on above: 1 Occurrences starti ng 01/10/2022 until 01/10/2023 Immunizations Immunization Date Immunization Notes Care Provider Marco A archer 06-07-2024 influenza, seasonal, injectable, preservative free Vanita Lizarraga MD Work Phone: [facility] 06-07-2024 influenza virus vaccine, unspecified formulation Vanita Lizarraga MD Work Phone: [facility] 03-21-2023 influenza, seasonal, injectable Sage Claudio MD Work Phone: [facility] 03-21-2023 influenza virus vaccine, unspecified formulation Caterina Lewis POLICY SPECIALIST Work Phone: [facility] 01-11-2023 tetanus toxoid, redu juan diphtheria toxoid, and acellular pertussis vaccine, adsorbed Vanita Lizarraga MD Work Phone: [facility] 04-25-2022 Influenza, injectabl e, Madin [place] Canine Kidney, preservative free, quadrivalent Vanita Lizarraga MD Work Phone: [facility] 04-25-2022 influenza virus vaccine, unspecified formulation Vanita Lizarraga MD Work Phone: [facility] 03-22-2021 influenza, injectabl e, quadrivalent, preservative free Vanita Lizarraga MD Work Phone: [facility] 03-22-2021 influenza virus vaccine, unspecified formulation Vanita Lizarraga MD Work Phone: [facility] 03-08-2019 influenza, injectabl e, quadrivalent, preservative free Vanita Lizarraga MD Work Phone: [facility] 02-06-2018 influenza, injectabl e, quadrivalent, preservative free Vanita Lizarraga MD Work Phone: [facility] 02-06-2015 influenza, seasonal, injectable Vanita Lizarraga MD Work Phone: [facility] 02-12-2014 influenza, seasonal, injectable Vanita Lizarraga MD Work Phone: [facility] 03-13-2013 influenza, seasonal, injectable Vanita Lizarraga MD Work Phone: [facility] 03-13-2013 tetanus toxoid, redu juan diphtheria toxoid, and acellular pertussis vaccine, adsorbed Vanita Lizarraga MD Work Phone: [facility] 05-07-2009 novel [id number], all formulations Vanita Lizarraga MD Work Phone: [facility] 03-21-2007 influenza virus vaccine, unspecified formulation Vanita Lizarraga MD Work Phone: [facility] Payers Date Payer Category Payer Unknown ANTHEM BCBS [facility] AN[employer] [employer] [place] [id number] 2021-Present [phone] [address] [place] [id number] 2017 Blue Cross Blue Shield [place] ([place]) AN[employer] [id number] 2017-Present [id number] 2017 Blue Cross Blue Shield [id number] 2017 Unknown [id number] 1972 Unknown [id number] 1970 Unknown [id number] Social History Date Type Detail Facility Tobacco smoking status NJIS Tobacco smoking consumption unknown [facility] Start: 1970 Sex Assigned At Not on file T [facility] Start: 12-31-2021 End: 07-26-2022 Exposure to SARS-CoV-2 (event) Not sure [facility] Start: 10-05-2021 End: 02-08-2023 Tobacco smoking status NHIS Never smoked tobacco [facility] Start: 10-05-2021 End: 02-08-2023 Tobacco use and exposure Smokeless tobacco non-user [facility] Start: 10-05-2021 End: 01-20-2025 Alcohol intake Current drinker of alcohol (finding) [facility] Start: 01-10-2022 History SDOH Alcohol Comment beer/wine 5/week, varies [facility] Start: 01-10-2022 Education 15 [place] [facility] Start: 07-26-2022 End: 08-05-2022 Exposure to SARS-CoV-2 (event) Unable to assess [facility] Start: 01-11-2023 End: 03-10-2025 History of Social function [facility] Start: 01-11-2023 End: 03-10-[address] [facility] Start: 1970 Sex Assigned At Female [facility] Start: 07-18-2023 Gender identity Identifies as female gender (finding) [facility] Are you worried that in the next 2 months you may not have stable housing? Patient declined [facility] Start: 02-14-2019 End: 05-29-2020 Sex Female (finding) [facility] Start: 01-17-[address] [facility] NEGATED: Highlighted rowStart: NINF History of tobacco use Passive smoker [facility] Functional Status Date Assessment Result Facility 01-20-2025 Patient Health [facility] ionnaire 2 item (PHQ-2) [Reported] [facility] Clinical Notes 10-05-2021 to 03-10-2025 Kourtney Pak CNM - 03/10/2025 10:06 AM Miriam Pak CNM - 03/10/2025 10:05 AM Miriam Pak CNM - 03/10/2025 9:30 AM EDTCsamir Lizarraga MD - 01/20/2025 10:00 AM EDT Note Date & Type Note Facility 03-10-2025 History of Present illness Narrative Associated Problem(s): Encounter for gynecological examination without abnormal finding 54 y.o. yo here for WWE -exam- normal -last LMP: absent -contraception: IUD -sexual activity: yes -mammogram-current -colonoscopy-current, done at 47 yo Plan: declined STI screening SBE advised and taught PAP Not Done F/u in 1 yr and prn Associated Problem(s): IUD check up Mirena IUD -denies MYA -denies ACHES -no complaints -menses-absent -placed-10/2019 Plan -f/u with annual and prn ANNUAL EXAM NOTE Francisco Nicole FUDGER Lyons Patient Name: Erica Ordaz Date of : 1970 Chief Complaint Patient presents with Annual Exam HPI Erica is a 54 y.o. female who presents today for annual exam. 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 Gastrointestinal: Negative for abdominal pain, nausea and vomiting. Endocrine: Negative. Genitourinary: Negative for dyspareunia, genital sores, menstrual problem, pelvic pain and vaginal discharge. Breast: negative. Negative for nipple discharge and breast lump or mass. Neurological: Negative for headaches. Psychiatric/Behavioral: Negative. All other systems reviewed and are negative. Objective BP 124/72 Ht 1.626 m (64) Wt 59.9 kg (132 lb) Body mass index is 22.66 kg/m . Physical Exam Constitutional: Appearance: Normal appearance. She is normal weight. Genitourinary: Vulva, bladder, rectum and urethral meatus normal. No vaginal discharge or tenderness. No vaginal prolapse present. No vaginal atrophy present. Right Adnexa: not palpable. Left Adnexa: not palpable. No cervical motion tenderness or discharge. IUD strings visualized. Uterus is not tender. Breasts: Breasts are soft. Right: Normal. Left: Normal. HENT: Head: Normocephalic and atraumatic. Cardiovascular: Rate and Rhythm: Normal rate. Pulmonary: Effort: Pulmonary effort is normal. Abdominal: General: Abdomen is flat. Palpations: Abdomen is soft. Tenderness: There is no abdominal tenderness. Musculoskeletal: General: Normal range of motion. Cervical back: Normal range of motion and neck supple. Neurological: General: No focal deficit present. Mental Status: She is alert and oriented to person, place, and time. Mental status is at baseline. Skin: General: Skin is warm and dry. Psychiatric: Mood and Affect: Mood normal. Behavior: Behavior normal. Thought Content: Thought content normal. Judgment: Judgment normal. Vitals reviewed. Assessment/Plan Problems Addressed This Visit Encounter for gynecological examination without abnormal finding - Primary Current Assessment & Plan 54 y.o. yo here for WWE -exam- normal -last LMP: absent -contraception: IUD -sexual activity: yes -mammogram-current -colonoscopy-current, done at 47 yo Plan: declined STI screening SBE advised and taught PAP Not Done F/u in 1 yr and prn IUD check up Current Assessment & Plan Mirena IUD -denies MYA -denies ACHES -no complaints -menses-absent -placed-10/2019 Plan -f/u with annual and prn IUD check up Mirena IUD -denies MYA -denies ACHES -no complaints -menses-absent -placed-10/2019 Plan -f/u with annual and prn Encounter for gynecological examination without abnormal finding 54 y.o. yo here for WWE -exam- normal -last LMP: absent -contraception: IUD -sexual activity: yes -mammogram-current -colonoscopy-current, done at 47 yo Plan: declined STI screening SBE advised and taught PAP Not Done F/u in 1 yr and prn Follow up in 1 year for annual. Kourtney Pak CNM documented in this encounter [facility] 01-20-2025 History of Present illness Narrative Subjective Patient ID: Erica Ordaz is a 54 y.o. female. Chief Complaint Patient presents with Annual Exam Erica Ordaz is here for a Adult Annual Wellness exam. Pt is alone today. Patient is doing well today. Pt is not fasting. [facility] in [place]. Care teams - updated Med refills Yes COVID - Advised will have to get at pharm, due to insurance/out of stock, Flu - Advised will have to get at pharm, due to insurance/out of stock, Hepatitis B - Declined, Pneumococcal - Declined, and Zoster - Declined PHQ - 0 HCRA - Done; see screenings HPI Here for annual well - age 54 Pap 01/2022 with gyne. Nl pap, neg HPV. Has IUD. Mammo 09/06 Colon -scope 03/05, repeat 10 yrs Immunizations -reviewed shingrix. Seasonal flu / covid. Hep B and PCV Started meeting with a counselor, she and her spouse are FH reviewed - father passed lung cancer Mother colon cancer HCRA - does not qualify Uses albuterol - mild intermittent asthma - rare use Hypertension: - Medications: Lisinopril 5 mg - BP in office this AM 112/80 - Home readings: - Pt denies CP, SOB, diaphoresis, headaches, hypotension, and swelling. BMI 22.6 Lab Results Component Value Date CREATININE 0.8 01/17/2024 Lab Results Component Value Date K 3.8 01/17/2024 No results found for: HGBA1C CrCl cannot be calculated (Patient's most recent lab result is older than the maximum 7 days allowed.). Lab Results Component Value Date CHOL 223 (H) 01/17/2024 CHOL 212 (H) 07/27/2022 Lab Results Component Value Date HDL 77 01/17/2024 HDL 71 07/27/2022 Lab Results Component Value Date LDLCALC 133 (H) 01/17/2024 LDLCALC 128 07/27/2022 Lab Results Component Value Date TRIG 64 01/17/2024 TRIG 63 07/27/2022 Lab Results Component Value Date CHOLHDL 2.9 01/17/2024 CHOLHDL 3.0 07/27/2022 The 10-year ASCVD risk score (Brenda OLIVARES, et al., 2019) is: 1.2% Values used to calculate the score: Age: 54 years Sex: Female Is Non- : No Diabetic: No Tobacco smoker: No Systolic Blood Pressure: 112 mmHg Is BP treated: Yes HDL Cholesterol: 77 mg/dL Total Cholesterol: 223 mg/dL PHQ-2/9 Over the past 2 weeks, how often have you been bothered by any of the following problems? Little interest or pleasure in doing things: Not at all Feeling down, depressed, or hopeless: Not at all Patient Health Questionnaire-2 Score: 0 Over the past 2 weeks, how often have you been bothered by any of the following problems? Trouble falling or staying asleep, or sleeping too much: Not at all Feeling tired or having little energy: Not at all Poor appetite or overeating: Not at all Feeling bad about yourself - or that you are a failure or have let yourself or your family down: Not at all Trouble concentrating on things, such as reading the newspaper or watching television: Not at all Moving or speaking so slowly that other people could have noticed? Or the opposite - being so fidgety or restless that you have been moving around a lot more than usual.: Not at all Thoughts that you would be better off or hurting yourself in some way: Not at all Patient Health Questionnaire-9 Score: 0 Review of Systems Constitutional: Negative for appetite change, chills, diaphoresis, fatigue, fever and unexpected weight change. HENT: Negative for congestion, ear pain, hearing loss, rhinorrhea, sinus pain and sore throat. Eyes: Negative for pain and redness. Respiratory: Negative for cough, chest tightness, shortness of breath and wheezing. Cardiovascular: Negative for chest pain, palpitations and leg swelling. Gastrointestinal: Negative for abdominal pain, constipation, diarrhea, nausea and vomiting. Endocrine: Negative for cold intolerance and heat intolerance. Genitourinary: Negative for difficulty urinating, dysuria, frequency and hematuria. Musculoskeletal: Negative for arthralgias, back pain, joint swelling and myalgias. Skin: Negative for rash. Allergic/Immunologic: Negative for immunocompromised state. Neurological: Negative for dizziness, tremors, seizures, syncope, numbness and headaches. Hematological: Negative for adenopathy. Does not bruise/bleed easily. Psychiatric/Behavioral: Negative for dysphoric mood. The patient is not nervous/anxious. Objective Physical Exam Vitals and nursing note reviewed. Constitutional: Appearance: Normal appearance. HENT: Right Ear: Tympanic membrane and ear canal normal. Left Ear: Tympanic membrane and ear canal normal. Nose: Nose normal. Mouth/Throat: Mouth: Mucous membranes are moist. Pharynx: Oropharynx is clear. Eyes: Pupils: Pupils are equal, round, and reactive to light. Cardiovascular: Rate and Rhythm: Normal rate and regular rhythm. Pulses: Normal pulses. Pulmonary: Effort: Pulmonary effort is normal. Breath sounds: Normal breath sounds. Abdominal: General: Abdomen is flat. Bowel sounds are normal. Palpations: Abdomen is soft. Musculoskeletal: Cervical back: Normal range of motion and neck supple. Skin: General: Skin is warm and dry. Neurological: General: No focal deficit present. Mental Status: She is alert. Psychiatric: Mood and Affect: Mood normal. Assessment/Plan Diagnoses and all orders for this visit: Primary hypertension - Comprehensive metabolic panel; Future - CBC auto differential; Future - lisinopriL 5 mg tablet; TAKE 1 TABLET BY MOUTH 1 TIME EACH DAY. Screening, lipid - Lipid panel; Future Exercise induced bronchospasm - albuterol 90 mcg/actuation inhaler; Inhale 2 puffs 4 (four) times a day if needed for wheezing. Well adult exam documented in this encounter [facility] 02-14-2024 History of Present illness Narrative Subjective Patient ID: Erica Ordaz is a 53 y.o. female. 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 Wants to leave IUD in for now Review of Systems Constitutional: Negative. Respiratory: Negative for shortness of breath. Gastrointestinal: Negative for abdominal distention and abdominal pain. Genitourinary: Negative for dysuria and genital sores. Breast: Negative for breast skin changes, nipple inversion, nipple discharge, breast lump or mass and breast pain. Neurological: Negative. Objective Physical Exam Constitutional: Appearance: Normal appearance. Genitourinary: Vulva, bladder, rectum and urethral meatus normal. No vaginal discharge. Right Adnexa: not tender and no mass present. Left Adnexa: not tender and no mass present. IUD strings visualized. Breasts: Breasts are soft. Right: Normal. Left: Normal. Cardiovascular: Rate and Rhythm: Normal rate and regular rhythm. Heart sounds: Normal heart sounds. Pulmonary: Effort: Pulmonary effort is normal. Breath sounds: Normal breath sounds. Abdominal: Palpations: Abdomen is soft. Neurological: Mental Status: She is alert and oriented to person, place, and time. Skin: General: Skin is warm and dry. Psychiatric: Mood and Affect: Mood normal. Assessment/Plan f/u annual documented in this encounter [facility] 07-31-2023 History of Present illness Narrative Pt here for post op visit of umbilical hernia repair. Pt denies pain or swelling. Post-Op Note The patient is status post Hernia Repair,umbilical. Pain is controlled without any medications. Patient is eating well, without constipation, voiding without difficulty and reduced swelling. The following portions of the patient's history were reviewed by a provider in this encounter and updated as appropriate: Tobacco Allergies Meds Problems Med Hx Surg Hx Fam Hx Objective Physical Exam: Visit Vitals OB Status Implant Smoking Status Never Constitutional: alert, not in acute distress, well developed and well nourished Abdomen: soft, bowel sounds active, non-tender, no abnormal masses, no hernias noted Incision(s): healing well, no drainage, no erythema, well approximated Tenderness at incision site: none Pathology: n/c Assessment/Plan Diagnoses and all orders for this visit: Umbilical hernia without obstruction and without gangrene Status post primary umbilical hernia repair without mesh No issues. Postop doing quite well. Solid repair. At this point may increase activity. But to keep her lifting at 25 pounds or less till 4 weeks postop. At 4 weeks can return to normal activity without restriction. Follow-up as needed. documented in this encounter [facility] 07-31-2023 Instructions Sage Claudio MD - 07/31/2023 2:30 PM EDT Umbilical hernia without obstruction and without gangrene Status post primary umbilical hernia repair without mesh No issues. Postop doing quite well. Solid repair. At this point may increase activity. But to keep her lifting at 25 pounds or less till 4 weeks postop. At 4 weeks can return to normal activity without restriction. Follow-up as needed. documented in this encounter [facility] 07-05-2023 History of Present illness Narrative Pt referred by dr lizarraga. Pt reports that she has had a bulge in her navel for over 10 years. Denies changes in size. Discomfort with touch. No imaging. Images from the original note were not included. Subjective Patient ID: Erica Ordaz is a 52 y.o. female. Chief Complaint Patient presents with Hernia This is a 52-year-old female who presents with umbilical hernia she has had for roughly 10 years. Patient states she noticed a small bulge prior about age of 42 but barely noticeable. It has gradually increased in size. Initially no discomfort. She has noticed some mild discomfort in the last couple years especially when she has a cough due to her allergies. Not really much pain with lifting. The bulge is more apparent with intermittently incarcerated but she is able to reduce it though she finds she is having to reduce it more often than not. From a GI standpoint the patient does not have any GI symptoms. No nausea nor vomiting. No problems with diet. No change in bowel habit, specifically no constipation nor diarrhea on a regular basis. Thus presents to consider elective surgery. The following portions of the chart were reviewed this encounter and updated as appropriate: Tobacco Allergies Meds Problems Med Hx Surg Hx Fam Hx Review of Systems Respiratory: Negative for cough and shortness of breath. Cardiovascular: Negative for palpitations. Gastrointestinal: Negative for abdominal pain, constipation, diarrhea, nausea and vomiting. Genitourinary: Negative for difficulty urinating, dysuria and frequency. Musculoskeletal: Negative for arthralgias, back pain and myalgias. Skin: Negative for wound. Neurological: Negative for seizures, syncope and weakness. Psychiatric/Behavioral: Negative for confusion and dysphoric mood. The patient is not nervous/anxious. Objective Physical Exam Vitals and nursing note reviewed. Constitutional: Appearance: Normal appearance. She is normal weight. HENT: Head: Normocephalic and atraumatic. Cardiovascular: Rate and Rhythm: Normal rate and regular rhythm. Pulses: Normal pulses. Heart sounds: Normal heart sounds. Pulmonary: Effort: Pulmonary effort is normal. Breath sounds: Normal breath sounds. Abdominal: General: Abdomen is flat. Bowel sounds are normal. Palpations: Abdomen is soft. Tenderness: There is no abdominal tenderness. Hernia: A hernia is present. Hernia is present in the umbilical area. Musculoskeletal: General: Normal range of motion. Skin: General: Skin is warm and dry. Neurological: General: No focal deficit present. Mental Status: She is alert and oriented to person, place, and time. Mental status is at baseline. Psychiatric: Mood and Affect: Mood normal. Behavior: Behavior normal. Thought Content: Thought content normal. Judgment: Judgment normal. Assessment/Plan Diagnoses and all orders for this visit: Umbilical hernia without obstruction and without gangrene - Ambulatory referral to General Surgery - Case Request Operating Room: HERNIA REPAIR,UMBILICAL; Standing - Basic metabolic panel; Future - CBC auto differential; Future - ECG 12 lead; Future Other orders - Full Code; Standing - Notify physician per standard parameters; Standing - Weigh patient; Standing - Measure height; Standing - Vital Signs; Standing - Pulse Oximetry; Standing - Insert peripheral IV; Standing - Saline lock IV; Standing - sodium chloride flush(floorstock) 3 mL - lidocaine (LMX) 4 % cream - Skin prep with CHG wipes; Standing - SCD-Sequential Compresssion Device; Standing - POCT , urine; Standing - oxygen (O2) gas - Place in outpatient/hospital ambulatory surgery; Standing - ceFAZolin in sterile water 2 gram/20 mL 2 g Overall patient has a small umbilical hernia that has gradually increased in size. There is no urgency to repair but I would suggest elective repair when it is smaller and less symptomatic. Furthermore better chance of doing a primary repair without mesh if fixed at a smaller dimension. So patient was advised to do this when it is convenient for her. Plan is for open umbilical hernia repair, possible mesh though less likely at [facility]. This will be done as an outpatient/observation surgery. Under MAC anesthesia. The patient will receive an appropriate preoperative antibiotics, 2 g IV Ancef. Risks and benefits of the procedure were discussed with the patient including complications and alternative options. Complications include but not limited to infection, bleeding, pain, inadvertent injury, cardiopulmonary event, and hernia recurrence. All questions were answered. The patient's medications will be adjusted appropriately, n/a. Appropriate labs will be ordered if the not already completed. If age-appropriate, an EKG will be ordered preoperatively. documented in this encounter [facility] 07-05-2023 Instructions Sage Claudio MD - 07/05/2023 9:30 AM EST Images from the original note were not included. Care Gram Preparing for Surgery Adults Welcome Thank you for choosing [facility] for your procedure. Please read the following information carefully. Preadmission Testing (Before Surgery) Your doctor may have scheduled you for pre-admission testing. Pre-admission testing helps prepare you for your procedure and may include: A consult with a member of the anesthesia team or nurse practitioner Lab tests EKG X-ray Other procedures ordered by your doctor If you do not have an appointment for pre-admission testing, please schedule if you have: Questions or concerns about anesthesia A chronic health problem or take many medications Insulin-dependent diabetes Please call Central Scheduling at , from 8:00 a.m. to 5:00 p.m., Monday through Monday, to schedule a pre-admission visit. The Day before Surgery You will be contacted by a nurse on the day before your surgery to let you know what time your surgery is scheduled and what time to arrive. It is very important that we have a current telephone number for you. If you have not heard from the Hospital by 4:00 p.m., please call . A patient having eye surgery will be notified of their surgery time by their surgeon. The Evening before Surgery Do not eat, drink, or chew anything after midnight on the morning prior to your surgery. This includes gum, hard candy, or mints. If you have been told to take any of your medications, only drink enough water to swallow your pills. Do not smoke after your evening meal. Follow the bathing instructions given to you by your surgeon. Plan to have another responsible adult accompany you to the Hospital and drive you back home. Do not drive for 24 hours after surgery. Plan to have someone stay with you for 24 hours after surgery. The Morning of Surgery Do not eat or drink anything during the morning of your surgery, including chewing gum, mints, or candy. Do not smoke or use chewing tobacco. Take any medicines that you were instructed to take with a small sip of water. You may brush your teeth and use mouthwash, but do not swallow it. Remove makeup, hairpins, tampons, body piercing and jewelry. Leave any valuables at home or with a family member. Please remove contact lenses. Forms to Bring A copy of your advance directives, living will, and/or healthcare [id number], if you have one A copy of the papers for [facility] s Do Not Resuscitate (DNR) or DNR/Comfort Care Program, if you are enrolled Your insurance, Medicaid, and/or Medicare card [employer] s license or photo ID Where to Go on the Day of Surgery If your surgery is scheduled at [facility], report to [address] [facility]. Enter the Hospital through the [facility] located between the Main Entrance and the Emergency Department. Take the gold elevators to the Second Floor and check in at the Surgery Department registration desk. If your surgery is scheduled at [facility] Surgery Department, report to [address] [facility]. Enter through the doors at the front of the building marked Outpatient Surgery and check in at the Surgery Department registration desk. Your family and friends may wait in the lobby during your surgery. Our electronic board system will help them track your progress through surgery. Your surgeon will speak to them after your procedure is finished. Preparation Once you have checked in, you will be taken to your room and prepared for surgery. You will be given a Hospital gown and sock slippers to wear. Please remove all your undergarments. Your belongings will be placed in a bag and locked in a patient locker. Give your valuables to your family/friend or have these placed in a locker. Tell your nurse if you need to wear dentures, partial plates, eyeglasses, or hearing aid(s) in order to talk to the anesthesiologist. If you brought your own case for those items, take that with you to surgery. Be sure it is labeled with your name; otherwise, the nurse will label containers for these items with your name and the date of your surgery. Try to use the restroom before you are taken to surgery. Pre-Op Area Your surgeon will marleen the side or site of your surgery prior to your procedure. For safety reasons, you will be asked several times about the correct side or site. You will need to sign any remaining consents for your surgery. Your surgeon and anesthesia provider will explain the risks and benefits of your procedure, and alternatives to your procedure. Ask any questions you may have before you sign consent forms. Your remaining time in Pre-op: Your vital signs (temperature, heart rate, breathing rate, and blood pressure) will be monitored. The nurse or anesthesia staff may start an IV in preparation for your surgery. IV medications may be given to help you relax. A small sensor will be placed on the tip of your finger or toe to check the amount of oxygen in your blood. Your hair will be covered with a paper cap. For safety, you may have your surgery site shaved with a clipper to remove hair. Again, for your safety, the nurse will verify the site of your surgery procedure with you and check your identification bracelet. Your family will be directed to the surgery waiting room. Your Surgery You will meet your surgery nurse before you are taken to the operating room. He or she will do a final check of the chart and verify the correct side or site for your surgery. Once in the room, the nurse will help you move onto the surgical table and provide you with a warm blanket. Before you drift off to sleep, several monitors will be placed to watch you throughout your procedure. After Surgery You may be taken to the recovery (phase 1) area. After you are awake and comfortable, you will be transferred back to the post-operative area where you can see your family and friends. You will be able to eat and drink at that time. Discharge to Home When you are ready for discharge, your nurse will review your discharge instructions with you and your family member/friend. You must have a responsible adult with you for 24 hours after surgery. Call your surgeon immediately if you have: Severe pain Fever Vomiting Trouble urinating Fainting Any problems or concerns Severe or continuous bleeding [phone] 09/13/2022 This Care Gram is for information purposes only. It may become out-of-date over time. Ask a doctor or a healthcare professional about your specific condition. Care Gram Bathing Before an Operation to Prevent Infection To reduce your risk of a wound infection, we will ask that you carefully wash before surgery to reduce the amount of bacteria germs that are on your skin. Following these instructions will help ensure that your skin is clean before surgery. You will need to shower/bathe with a special soap called chlorhexidine gluconate (CHG). A common brand name for this soap is Hibiclens, but any brand will suffice. The soap is available in a liquid form. We will give you packets of the cleanser. If you are allergic to CHG, please let your clinician know and an alternate cleanser will be recommended. Instructions: Shower or bathe with CHG on the night before surgery and the morning of surgery. Apply the CHG soap to your entire body only from the neck down. Do not use CHG near your eyes, nose or mouth. Do not shave the area of your body where your surgery will be performed. Wash your hair as usual with your normal shampoo. Rinse your hair and body thoroughly after shampooing to remove all soap residue. Turn off the water to prevent rinsing the CHG off too soon. Wash your body gently for five (5) minutes with CHG. Do not scrub your skin too hard. Do not wash with your regular soap after washing with CHG. Turn the water back on and rinse your body thoroughly. Pat yourself dry with a soft, freshly laundered towel. Do not use lotion, body cream or powder on your skin. You may use deodorant. Put on fresh clean clothing. If you have any questions, please call your doctor s office. Umbilical hernia without obstruction and without gangrene - Ambulatory referral to General Surgery - Case Request Operating Room: HERNIA REPAIR,UMBILICAL; Standing - Basic metabolic panel; Future - CBC auto differential; Future - ECG 12 lead; Future Other orders - Full Code; Standing - Notify physician per standard parameters; Standing - Weigh patient; Standing - Measure height; Standing - Vital Signs; Standing - Pulse Oximetry; Standing - Insert peripheral IV; Standing - Saline lock IV; Standing - sodium chloride flush(floorstock) 3 mL - lidocaine (LMX) 4 % cream - Skin prep with CHG wipes; Standing - SCD-Sequential Compresssion Device; Standing - POCT , urine; Standing - oxygen (O2) gas - Place in outpatient/hospital ambulatory surgery; Standing - ceFAZolin in sterile water 2 gram/20 mL 2 g Plan is for open umbilical hernia repair, possible mesh though less likely at [facility]. This will be done as an outpatient/observation surgery. Under MAC anesthesia. The patient will receive an appropriate preoperative antibiotics, 2 g IV Ancef. Risks and benefits of the procedure were discussed with the patient including complications and alternative options. Complications include but not limited to infection, bleeding, pain, inadvertent injury, cardiopulmonary event, and hernia recurrence. All questions were answered. The patient's medications will be adjusted appropriately, n/a. Appropriate labs will be ordered if the not already completed. If age-appropriate, an EKG will be ordered preoperatively. [id number] 12/14/2021 This Care Gram is for information purposes only. It may become out-of-date over time. Ask a doctor or a healthcare professional about your specific condition. documented in this encounter [facility] 02-08-2023 History of Present illness Narrative Subjective Patient ID: Erica Ordaz is a 52 y.o. female. 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 Respiratory: Negative for shortness of breath. Gastrointestinal: Negative for abdominal distention and abdominal pain. Genitourinary: Negative for dysuria and genital sores. Breast: Negative for breast skin changes, nipple inversion, nipple discharge, breast lump or mass and breast pain. Neurological: Negative. Objective Physical Exam Constitutional: Appearance: Normal appearance. Genitourinary: Vulva, bladder, rectum and urethral meatus normal. No vaginal discharge. Right Adnexa: not tender and no mass present. Left Adnexa: not tender and no mass present. Breasts: Breasts are soft. Right: Normal. Left: Normal. Cardiovascular: Rate and Rhythm: Normal rate and regular rhythm. Heart sounds: Normal heart sounds. Pulmonary: Effort: Pulmonary effort is normal. Breath sounds: Normal breath sounds. Abdominal: Palpations: Abdomen is soft. Neurological: Mental Status: She is alert and oriented to person, place, and time. Skin: General: Skin is warm and dry. Psychiatric: Mood and Affect: Mood normal. Assessment/Plan f/u annual documented in this encounter [facility] 01-11-2023 History of Present illness Narrative Pt presents for Annual exam. Patient has no complaints today. Rx is [facility] pharmacy at [place]. Pt is Not fasting. Pt is alone today. Flu- not yet Covid- x1 Shingle- none Hep- will talk about it PHQ- 2 Tdap- yes, she think her insurance will covered. Specialty: Pulmonology Physician Name: Dr Bahena Last appt: 03/2022 Next appt: as needed RX Changes: none Specialty: OBGYN Physician Name: Don Last appt: 04/2022 Next appt: once a year RX Changes: none Subjective Patient ID: Erica Ordaz is a 52 y.o. female. Chief Complaint Patient presents with Annual Exam HPI Here for annual well - age 52 Pap 01/2022 with gyne. Nl pap, neg HPV. Has IUD. Mammo 08/04 Colon -scope 03/05, repeat 10 yrs Immunizations -reviewed shingrix. Seasonal flu / covid. Tdap (today) Labs 08/04 Hypertension: - Medications: Lisinopril - BP borderline in office this AM 140/80 - Home readings: 138 -140 sys, will increase dose - Pt denies CP, SOB, diaphoresis, headaches, hypotension, and swelling. Lab Results Component Value Date CREATININE 0.8 07/27/2022 Lab Results Component Value Date K 4.3 07/27/2022 No results found for: HGBA1C CrCl cannot be calculated (Patient's most recent lab result is older than the maximum 7 days allowed.). Lab Results Component Value Date CHOL 212 (H) 07/27/2022 Lab Results Component Value Date HDL 71 07/27/2022 Lab Results Component Value Date LDLCALC 128 07/27/2022 Lab Results Component Value Date TRIG 63 07/27/2022 Lab Results Component Value Date CHOLHDL 3.0 07/27/2022 The 10-year ASCVD risk score (Brenda OLIVARES, et al., 2019) is: 1.6% Values used to calculate the score: Age: 52 years Sex: Female Is Non- : No Diabetic: No Tobacco smoker: No Systolic Blood Pressure: 140 mmHg Is BP treated: Yes HDL Cholesterol: 71 mg/dL Total Cholesterol: 212 mg/dL PHQ-2/9 Over the past 2 weeks, how often have you been bothered by any of the following problems? Little interest or pleasure in doing things: Not at all Feeling down, depressed, or hopeless: Not at all Patient Health Questionnaire-2 Score: 0 Over the past 2 weeks, how often have you been bothered by any of the following problems? Trouble falling or staying asleep, or sleeping too much: Several days Feeling tired or having little energy: Not at all Poor appetite or overeating: Not at all Feeling bad about yourself - or that you are a failure or have let yourself or your family down: Not at all Trouble concentrating on things, such as reading the newspaper or watching television: Several days Moving or speaking so slowly that other people could have noticed? Or the opposite - being so fidgety or restless that you have been moving around a lot more than usual.: Not at all Thoughts that you would be better off or hurting yourself in some way: Not at all Patient Health Questionnaire-9 Score: 2 Review of Systems Constitutional: Negative for appetite change, chills, diaphoresis, fatigue, fever and unexpected weight change. HENT: Negative for congestion, ear pain, hearing loss, rhinorrhea, sinus pain and sore throat. Eyes: Negative for pain and redness. Respiratory: Negative for cough, chest tightness, shortness of breath and wheezing. Cardiovascular: Negative for chest pain, palpitations and leg swelling. Gastrointestinal: Negative for abdominal pain, constipation, diarrhea, nausea and vomiting. Endocrine: Negative for cold intolerance and heat intolerance. Genitourinary: Negative for difficulty urinating, dysuria, frequency and hematuria. Musculoskeletal: Negative for arthralgias, back pain, joint swelling and myalgias. Skin: Negative for rash. Allergic/Immunologic: Negative for immunocompromised state. Neurological: Negative for dizziness, tremors, seizures, syncope, numbness and headaches. Hematological: Negative for adenopathy. Does not bruise/bleed easily. Psychiatric/Behavioral: Negative for dysphoric mood. The patient is not nervous/anxious. Objective Physical Exam Vitals and nursing note reviewed. Constitutional: Appearance: Normal appearance. HENT: Right Ear: Tympanic membrane and ear canal normal. Left Ear: Tympanic membrane and ear canal normal. Nose: Nose normal. Mouth/Throat: Mouth: Mucous membranes are moist. Pharynx: Oropharynx is clear. Eyes: Pupils: Pupils are equal, round, and reactive to light. Cardiovascular: Rate and Rhythm: Normal rate and regular rhythm. Pulmonary: Effort: Pulmonary effort is normal. Breath sounds: Normal breath sounds. Abdominal: General: Abdomen is flat. Bowel sounds are normal. Palpations: Abdomen is soft. Musculoskeletal: Cervical back: Normal range of motion and neck supple. Skin: General: Skin is warm and dry. Neurological: General: No focal deficit present. Mental Status: She is alert. Psychiatric: Mood and Affect: Mood normal. Assessment/Plan Diagnoses and all orders for this visit: Primary hypertension - lisinopriL 5 mg tablet; Take 1 tablet (5 mg total) by mouth 1 (one) time each day. Well adult exam Need for vaccination - Tdap vaccine greater than or equal to 7yo IM Area cleaned with alcohol Tdap given tolerated well Codie Hodges RN; 01/11/23; 9:05 AM documented in this encounter [facility] 07-26-2022 History of Present illness Narrative Subjective Patient ID: Erica Ordaz is a 51 y.o. female. Chief Complaint Patient presents with Hypertension Patient has concern about the high blood pressure. Pt is checking blood pressure at home, the recent one she check was 137/92. That was on 07/21/3022. Immunizations Covid- x2 not the booster Mammogram- [place] [facility] Hep- decline HPI Here to follow up BP. Has been trending up. She came in last week for nurse BP. 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 HENT: Negative for congestion, ear pain, hearing loss, rhinorrhea, sinus pain and sore throat. Eyes: Negative for pain and redness. Respiratory: Negative for cough, chest tightness, shortness of breath and wheezing. Cardiovascular: Negative for chest pain, palpitations and leg swelling. Gastrointestinal: Negative for abdominal pain, constipation, diarrhea, nausea and vomiting. Endocrine: Negative for cold intolerance and heat intolerance. Genitourinary: Negative for difficulty urinating, dysuria, frequency and hematuria. Musculoskeletal: Negative for arthralgias, back pain, joint swelling and myalgias. Skin: Negative for rash. Allergic/Immunologic: Negative for immunocompromised state. Neurological: Negative for dizziness, tremors, seizures, syncope, numbness and headaches. Hematological: Negative for adenopathy. Does not bruise/bleed easily. Psychiatric/Behavioral: Negative for dysphoric mood. The patient is not nervous/anxious. Objective Physical Exam Vitals and nursing note reviewed. Constitutional: Appearance: Normal appearance. HENT: Right Ear: Tympanic membrane and ear canal normal. Left Ear: Tympanic membrane and ear canal normal. Nose: Nose normal. Mouth/Throat: Mouth: Mucous membranes are moist. Pharynx: Oropharynx is clear. Eyes: Pupils: Pupils are equal, round, and reactive to light. Cardiovascular: Rate and Rhythm: Normal rate and regular rhythm. Pulmonary: Effort: Pulmonary effort is normal. Breath sounds: Normal breath sounds. Abdominal: General: Abdomen is flat. Bowel sounds are normal. Palpations: Abdomen is soft. Musculoskeletal: Cervical back: Normal range of motion and neck supple. Skin: General: Skin is warm and dry. Neurological: Mental Status: She is alert. Assessment/Plan Diagnoses and all orders for this visit: Primary hypertension - TSH; Future - Urinalysis with microscopic; Future - CBC; Future - Comprehensive metabolic panel; Future - Lipid panel; Future - ECG 12 lead - In Clinic - lisinopriL 2.5 mg tablet; Take 1 tablet (2.5 mg total) by mouth 1 (one) time each day. Exercise induced bronchospasm - albuterol 90 mcg/actuation inhaler; Inhale 2 puffs 4 (four) times a day if needed for wheezing. Screening mammogram for breast cancer - BI MAMMOGRAM SCREENING TOMOSYNTHESIS BILATERAL; Future ekg reviewed = NSR, no LVH, no St changes documented in this encounter [facility] 01-19-2022 History of Present illness Narrative Patient is scheduling at [facility] Need Sutab orders Mailed Sutab instructions and facility instructions 01/19/22 documented in this encounter [facility] 01-10-2022 History of Present illness Narrative Subjective Patient ID: Erica Ordaz is a 51 y.o. female. Chief Complaint Patient presents with Physical: Wellness Patient refuses PNA vaccine. Okay to complete Colonoscopy. Right ankle larger than left, wants evaluated, started >1 year ago, tender to touch, unable to sit on ankle, no past injury. HPI Here for annual well Pap - had at [facility] this year mammo 08/03 Colon -will schedule Immunizations - reviewed new covid and seasonal flu exercise induced bronchospasm -would not have her do PCV - prn albuterol Lipids -none listed on chart Glu -none listed on chart BMI 22.9 BP is borderline today Hep c / HIV screen - declines no risks R ankle swells - intermittent Review of Systems Constitutional: Negative for appetite change, chills, diaphoresis, fatigue, fever and unexpected weight change. HENT: Negative for congestion, ear pain, hearing loss, rhinorrhea, sinus pain and sore throat. Eyes: Negative for pain and redness. Respiratory: Negative for cough, chest tightness, shortness of breath and wheezing. Cardiovascular: Negative for chest pain, palpitations and leg swelling. Gastrointestinal: Negative for abdominal pain, constipation, diarrhea, nausea and vomiting. Endocrine: Negative for cold intolerance and heat intolerance. Genitourinary: Negative for difficulty urinating, dysuria, frequency and hematuria. Musculoskeletal: Negative for arthralgias, back pain, joint swelling and myalgias. Skin: Negative for rash. Allergic/Immunologic: Negative for immunocompromised state. Neurological: Negative for dizziness, tremors, seizures, syncope, numbness and headaches. Hematological: Negative for adenopathy. Does not bruise/bleed easily. Psychiatric/Behavioral: Negative for dysphoric mood. The patient is not nervous/anxious. Objective Physical Exam Vitals and nursing note reviewed. Constitutional: Appearance: Normal appearance. HENT: Right Ear: Tympanic membrane and ear canal normal. Left Ear: Tympanic membrane and ear canal normal. Nose: Nose normal. Mouth/Throat: Mouth: Mucous membranes are moist. Pharynx: Oropharynx is clear. Eyes: Pupils: Pupils are equal, round, and reactive to light. Cardiovascular: Rate and Rhythm: Normal rate and regular rhythm. Pulmonary: Effort: Pulmonary effort is normal. Breath sounds: Normal breath sounds. Abdominal: General: Abdomen is flat. Bowel sounds are normal. Palpations: Abdomen is soft. Musculoskeletal: General: Swelling (R ankle) present. Cervical back: Normal range of motion and neck supple. Skin: General: Skin is warm and dry. Capillary Refill: Capillary refill takes less than 2 seconds. Neurological: General: No focal deficit present. Mental Status: She is alert. Psychiatric: Mood and Affect: Mood normal. Thought Content: Thought content normal. Assessment/Plan Diagnoses and all orders for this visit: Screen for colon cancer - Ambulatory referral to Gastroenterology; Future Screening for diabetes mellitus - Comprehensive metabolic panel; Future Screening, lipid - Lipid panel; Future Well adult exam Other orders - albuterol 90 mcg/actuation inhaler; Inhale 2 puffs 4 (four) times a day if needed for wheezing. documented in this encounter [facility] 10-05-2021 History of Present illness Narrative Erica Ordaz, IS A 51 y.o., female PT C/O PAIN WITH URINATION, FREQUENCY OF URINATION, BLOOD IN URINE X TODAY. PT DENIES ANY FEVERS AT THIS TIME. Review of Systems Constitutional: Negative for fever. Gastrointestinal: Negative for nausea and vomiting. Genitourinary: Positive for dysuria, frequency and hematuria. Musculoskeletal: Negative for back pain. History reviewed. No pertinent past medical history. History reviewed. No pertinent surgical history. No family history on file. Social History Socioeconomic History Marital status: Spouse name: Not on file Number of children: Not on file Years of education: Not on file Highest education level: Not on file Occupational History Not on file Tobacco Use Smoking status: Never Smoker Smokeless tobacco: Never Used Substance and Sexual Activity Alcohol use: Yes Drug use: Defer Sexual activity: Defer Other Topics Concern Not on file Social History Narrative Not on file Social Determinants of Health Financial Resource Strain: Not on file Food Insecurity: Not on file Transportation Needs: Not on file Physical Activity: Not on file Stress: Not on file Social Connections: Not on file Intimate Partner Violence: Not on file Housing Stability: Not on file Current Outpatient Medications Medication Sig Dispense Refill albuterol (ProAir HFA) 90 mcg/actuation inhaler Inhale 2 puffs 4 (four) times a day if needed for wheezing. albuterol (Ventolin HFA) 90 mcg/actuation inhaler Inhale 2 puffs every 6 (six) hours if needed for wheezing or shortness of breath. 18 g 0 cephalexin (Keflex) 500 mg capsule Take 1 capsule (500 mg total) by mouth 2 (two) times a day for 10 days. 20 capsule 0 levonorgestreL (Mirena) 20 mcg/24 hours (7 yrs) 52 mg IUD 1 each by intrauterine route. phenazopyridine (Pyridium) 200 mg tablet Take 1 tablet (200 mg total) by mouth 3 (three) times a day with meals for 3 days. 10 tablet 0 No current facility-administered medications for this visit. Allergies Allergen Reactions Sulfamethoxazole-Trimethoprim Other reaction(s): rash Sulfa (Sulfonamide Antibiotics) Nursing notes reviewed. Physical Exam Vitals and nursing note reviewed. Constitutional: Appearance: Normal appearance. HENT: Head: Normocephalic and atraumatic. Cardiovascular: Rate and Rhythm: Normal rate and regular rhythm. Pulses: Normal pulses. Heart sounds: Normal heart sounds. Pulmonary: Effort: Pulmonary effort is normal. Breath sounds: Normal breath sounds. Abdominal: General: Abdomen is flat. Palpations: Abdomen is soft. Tenderness: There is no abdominal tenderness. There is no right CVA tenderness, left CVA tenderness or guarding. Musculoskeletal: General: Normal range of motion. Skin: General: Skin is warm and dry. Capillary Refill: Capillary refill takes less than 2 seconds. Neurological: General: No focal deficit present. Mental Status: She is alert and oriented to person, place, and time. Mental status is at baseline. Psychiatric: Mood and Affect: Mood normal. Behavior: Behavior normal. Visit Vitals BP 136/88 Pulse 71 Temp 36.5 C (97.7 F) Resp 19 Wt 59.9 kg (132 lb) SpO2 100% Smoking Status Never Smoker Recent Results (from the past 24 hour(s)) POCT urinalysis dipstick Collection Time: 10/05/21 11:36 AM Result Value Ref Range Color, UA Yellow Clarity, UA Cloudy Glucose, UA Negative Negative Bilirubin, UA Negative Negative Ketones, UA Trace (A) Negative Spec Grav, UA 1.025 Blood, UA Large (A) Negative pH, UA 6.0 Protein, UA 100 (A) Negative Urobilinogen, UA 1.0 0.2 - 1.0 Leukocytes, UA Small (A) Negative Nitrite, UA Negative Negative Assessment/Plan Diagnoses and all orders for this visit: Acute cystitis with hematuria - POCT urinalysis dipstick - Urine culture - cephalexin (Keflex) 500 mg capsule; Take 1 capsule (500 mg total) by mouth 2 (two) times a day for 10 days. - phenazopyridine (Pyridium) 200 mg tablet; Take 1 tablet (200 mg total) by mouth 3 (three) times a day with meals for 3 days. Mild intermittent asthma, unspecified whether complicated Other orders - albuterol (Ventolin HFA) 90 mcg/actuation inhaler; Inhale 2 puffs every 6 (six) hours if needed for wheezing or shortness of breath. PT ARRIVES TO ROOM 10. PT C/O PAIN WITH URINATION, FREQUENCY OF URINATION, BLOOD IN URINE X TODAY. PT DENIES ANY FEVERS AT THIS TIME. documented in this encounter [facility] [employer] 10-05-2021 Instructions Yobani Cronin MD - 10/05/2021 11:30 AM EDT Images from the original note were not included. Patient Education Urinary Tract Infection (UTI; Lower UTI) Definition A urinary tract infection (UTI) is an infection in any part of the urinary system including: Upper tract: ? Kidneys ? Ureter tubes from kidneys to bladder Lower tract: ? Bladder ? Urethra tubes from bladder that lets urine pass out of the body The infection can cause swelling in the tract. This makes it painful to pass urine. The infection may be named for the specific area of the urinary tract that it effects: Uretheral infection urethritis Bladder infection cystitis Kidney infection pyelonephritis The Urinary Tract Copyright [employer] Causes UTIs are caused by bacteria. The bacteria cling to the opening of the urethra. There they begin to grow and spread. The infection can then move up into the bladder. If the infection is not treated it can spread to the kidney. It can then lead to a severe kidney infection. The bacteria often come from the colon or vagina. They are passed or moved toward the urethra. Risk Factors UTIs are more common in women. Other things that may increase your chance of a UTI include: Being sexually active Use of spermicide New sexual partner History of UTIs in sister, mother, or daughter Some conditions may increase the chance of a UTI: Diabetes Weak immune system Menopause Bladder catheter in place or recently used Neurogenic bladder Renal insufficiency Kidney stones Problems in the urinary tract that slow the flow of urine, such as vesicoureteral reflux or polycystic kidneys History of kidney transplant Tumor Symptoms Some may not have any symptoms. Those that do have symptoms may have: Urgent need to urinate Small amounts of urine during urination Pain in the abdomen or pelvic area Burning sensation during urination Cloudy, bad-smelling urine Increased need to get up at night to urinate Leaking of urine Fever and chills Nausea and low desire to eat An infection in the kidney can be more serious. Call your doctor right away if you have symptoms of a kidney infection, such as: Bloody urine Low back pain or pain along the side of the ribs High fever and chills Diagnosis The doctor will ask about symptoms and past health. A physical exam will also be done. Urine will be tested for signs of infection. Frequent infections may be caused by a blockage or structure issues. Images of the urinary tract may be taken with: CT scan Ultrasound Treatment UTIs are treated with antibiotics. They can start to ease symptoms within 1 to 2 days. It is important to take all of the medicine, even if you feel better. A hospital stay may be needed with a severe infection. The antibiotics can then be delivered through an IV. The infection may cause pain and spasms in the bladder. Medicine can help to ease spasms. Prevention To help decrease the risk of a UTI: Empty your bladder completely after sex. Drink a full glass of water. Drink plenty of fluids throughout the day. Last Reviewed: January 2020 [facility] Medical Review Board Sarah Branch MD Updated: 11/15/2019 [facility] documented in this encounter [facility] Evaluation note Diagnosis Encounter for screening mammogram for breast cancer documented in this encounter [facility] note* Diagnosis Acute cystitis with hematuria- Primary Mild intermittent asthma, unspecified whether complicated [facility] Diagnosis Screen for colon cancer- Primary Special screening for malignant neoplasms, colon Screening for diabetes mellitus Screening, lipid Well adult exam Routine general medical examination at a health care facility [facility] Diagnosis Primary hypertension- Primary Unspecified essential hypertension Exercise induced bronchospasm Screening mammogram for breast cancer [facility] Diagnosis Screening mammogram for breast cancer [facility] Diagnosis Primary hypertension- Primary Unspecified essential hypertension Well adult exam Routine general medical examination at a health care facility Need for vaccination Need for prophylactic vaccination and inoculation against unspecified single disease documented in this encounter [facility] note* Diagnosis Encounter for annual routine gynecological examination- Primary documented in this encounter [facility] note* Diagnosis Umbilical hernia without obstruction and without gangrene- Primary Umbilical hernia without obstruction and without gangrene- Primary Preoperative clearance Unspecified pre-operative examination Umbilical hernia without obstruction and without gangrene documented in this encounter [facility] note* Diagnosis Umbilical hernia without obstruction and without gangrene- Primary Preoperative clearance Unspecified pre-operative examination Umbilical hernia without obstruction and without gangrene Umbilical hernia without obstruction and without gangrene documented in this encounter [facility] note* Diagnosis Umbilical hernia without obstruction and without gangrene- Primary Postop check Follow-up examination, following unspecified surgery documented in this encounter [facility] note* Diagnosis Encounter for screening mammogram for breast cancer documented in this encounter [facility] note* Diagnosis Encounter for annual routine gynecological examination- Primary documented in this encounter [facility] note* Diagnosis Encounter for screening mammogram for breast cancer documented in this encounter [facility] note* Diagnosis Primary hypertension- Primary Unspecified essential hypertension Screening, lipid Exercise induced bronchospasm Well adult exam Routine general medical examination at a health care facility documented in this encounter [facility] note* Diagnosis Encounter for gynecological examination without abnormal finding- Primary IUD check up documented in this encounter [facility] for referral (narrative)* Consultation (Routine) - Authorized Specialty Diagnoses / Procedures Referred By Charlie blue Referred To Contact Gastroenterology Diagnoses Screen for colon cancer Vanita Lizarraga MD [facility] [address] [place] [phone] Referral ID Status Reason Start Date Expiration Date Visits Requested Visits Authorized [id number] Authorized Specialty Services Required 01/10/2022 01/10/2023 1 1 Scheduling Instructions [facility] for visit Narrative* Imaging (Routine) - Authorized Specialty Diagnoses / Procedures Referred By Contac t Referred To Contact Radiology Diagnoses Encounter for screening mammogram for breast cancer Procedures MG Mammo Digital Screening w Kyree bilat Cepl, Selfreferral [facility] [place] Referral ID Status Reason Start Date Expiration Date V isits Requested Visits Authorized [id number] Authorized 07/15/2024 07/15/2025 1 1 [facility] Summary Purpose Family History No Family History Records FoundNo Family History Records FoundNo Family History Records FoundNo Family History Records Found Advance Directives No Advanced Directives Records FoundDocuments on File Type Date Recorded 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 Documents on File Type Date Recorded 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 Advance Directives and Living Will Power of Particleboard Factory Worker Documents on File Type Date Recorded 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 Advance Directives and Living Will Power of Particleboard Factory Worker Latest Code Status on File Code Status Date Activated Date Inactivated Comments Full Code 07/18/2023 12:11 PM 07/18/2023 8:19 PM Date Activated Date Inactivated Comments 07/18/2023 12:11 PM 07/18/2023 8:19 PM Reason for Referral Specialty Diagnoses / Procedures Referred By Contac t Referred To Contact Radiology Diagnoses Encounter for screening mammogram for breast cancer Procedures MG Mammo Digital Screening w Kyree bilat Cepl, Selfreferral [facility] [place] Referral ID Status Reason Start Date Expiration Date V isits Requested Visits Authorized [id number] Authorized 07/13/2021 01/09/2022 1 1 Specialty Diagnoses / Procedures Referred By Perlitaac t Referred To Contact Radiology Diagnoses Screening mammogram for breast cancer Procedures MG Mammo Digital Screening w Vanita Dahl MD [address] [place] [phone] [facility] Referral ID Status Reason Start Date Expiration Date V isits Requested Visits Authorized [id number] Authorized 07/27/2022 01/23/2023 1 1 Specialty Diagnoses / Procedures Referred By Charlie t Referred To Contact Diagnoses Umbilical hernia without obstruction and without gangrene Umbilical hernia without obstruction and without gangrene [K42.9] Procedures Case Request Operating Room: HERNIA REPAIR,UMBILICAL AL RPR AA HERNIA 1ST < 3 CM REDUCIBLE HERNIA REPAIR,UMBILICAL Sage Claudio MD [address] [place] [address] Referral ID Status Reason Start Date Expiration Date V isits Requested Visits Authorized [id number] New Request 07/05/2023 07/04/2024 1 1 Referral ID Status Reason Start Date Expiration Date V isits Requested Visits Authorized [id number] Authorized 08/01/2023 07/31/2024 1 1 Additional Source Comments INFORMATION SOURCE (unrecogn ized section and content) DATE CREATED AUTHOR 06/29/2019 [facility] DATE CREATED AUTHOR AUTHOR'S ORGANIZ ATION 05/15/2020 [facility] DATE CREATED AUTHOR AUTHOR'S ORGANIZ ATION 01/21/2025 [facility] DATE CREATED AUTHOR AUTHOR'S ORGANIZ ATION 03/11/2025 Ayr Eas [facility] Reason for Visit (unrecogniz ed section and content) Specialty Diagnoses / Procedures Referred By Contac t Referred To Contact Radiology Diagnoses Encounter for screening mammogram for breast cancer Procedures MG Mammo Digital Screening w Kyree perez Cepl, Selfreferral [facility] [place] Referral ID Status Reason Start Date Expiration Date V isits Requested Visits Authorized [id number] Authorized 07/13/2021 01/09/2022 1 1 Reason Comments Urinary Problem PY Reason Comments Physical: Wellness Patient refuses PNA vaccine. Okay to complete Colonoscopy. Right ankle larger than left, wants evaluated, started >1 year ago, tender to touch, unable to sit on ankle, no past injury. Reason Comments Med Change Request Reason Comments Hypertension Patient has concern about the high blood pressure. Pt is checking blood pressure at home, the recent one she check was 137/92. That was on 07/21/3022. Immunizations Covid- x2 not the ana ryan Mammogram- will schedule at [facility] Hep- decline Specialty Diagnoses / Procedures Referred By Contac t Referred To Contact Radiology Diagnoses Screening mammogram for breast cancer Procedures MG Mammo Digital Screening w Vanita Dahl MD [address] [place] [address] [facility] [place] Referral ID Status Reason Start Date Expiration Date V isits Requested Visits Authorized [id number] Authorized 07/27/2022 01/23/2023 1 1 Reason Comments Annual Exam Reason Comments Hernia Specialty Diagnoses / Procedures Referred By Contac t Referred To Contact General Surgery Diagnoses Umbilical hernia without obstruction and without gangrene Vanita Lizarraga MD [address] [place] [address] [facility] [address] [place] [address] Referral ID Status Reason Start Date Expiration Date V isits Requested Visits Authorized [id number] Closed Specialty Services Required 06/22/2023 06/21/2024 1 1 Reason Comments Post-op Referral ID Status Reason Start Date Expiration Date V isits Requested Visits Authorized [id number] Authorized 08/01/2023 07/31/2024 1 1 Reason Comments Annual Exam Erica Ordaz is he re for a Adult Annual Wellness exam. Pt is alone today. Patient is doing well today. Pt is not fasting. [facility] Pharm[facility] in [place].Care teams - updatedMed refills YesCOVID - Advised will have to get at pharm, due to insurance/out of stock, Flu - Advised will have to get at pharm, due to insurance/out of stock, Hepatitis B - Declined, Pneumococcal - Declined, and Zoster - DeclinedPHQ - 0HCRA - Done; see screenings Care Teams (unrecognized sec tion and content) Book Coverer Relationship Specialty Start Date End Date Vanita Lizarraga MD [address] [phone] PCP - General Family Medicine 07/13/21 Book Coverer Relationship Specialty Start Date End Date Vanita Lizarraga MD [address] /[address] [place] [phone] PCP - General General 12/10/04 Book Coverer Relationship Specialty Start Date End Date Vanita Lizarrgaa MD [facility] [address] /[address] [place] [phone] PCP - General General 12/10/04 Book Coverer Relationship Specialty Start Date End Date Vanita Lizarraga MD [address] [place] [address] PCP - General Family Medicine 07/13/21 Book Coverer Relationship Specialty Start Date End Date Vanita Lizarraga MD [address] [place] [address] PCP - General Family Medicine 07/13/21 Book Coverer Relationship Specialty Start Date End Date Vanita Lizarraga MD [address] [place] [address] PCP - General General 12/10/04 Kaylee Miller MD [facility] [address] [place] [address] Referring Physician 07/26/22 Book Coverer Relationship Specialty Start Date End Date Vanita Lizarraga MD [address] [place] [address] PCP - General Family Medicine 07/13/21 Book Coverer Relationship Specialty Start Date End Date Vanita Lizarraga MD [address] [place] [address] PCP - General General 12/10/04 Kaylee Miller MD [address] [place] [address] [address] [place] [address] Referring Physician 07/26/22 Kiesha Ochoa MD [address] [facility] [address] [place] [address] Obstetrics and Gynecology 01/11/23 Book Coverer Relationship Specialty Start Date End Date Vanita Lizarraga MD [address] [place] [address] PCP - General General 12/10/04 Kaylee Miller MD [address] [place] [address] [address] [place] [address] Referring Physician 07/26/22 Kiesha Ochoa MD [address] [place] [address] Obstetrics and Gynecology 01/11/23 Book Coverer Relationship Specialty Start Date End Date Vanita Lizarraga MD [address] [place] [address] PCP - General Family Medicine 07/13/21 Book Coverer Relationship Specialty Start Date End Date Vanita Lizarraga MD [facility] [address] [place] [address] PCP - General General 12/10/04 Kaylee Miller MD [address] [place] [address] [address] [place] [address] Referring Physician 07/26/22 Kiesha Ochoa MD [address] [place] [address] Obstetrics and Gynecology 01/11/23 Book Coverer Relationship Specialty Start Date End Date Vanita Lizarraga MD [facility] [address] [place] [address] PCP - General General 12/10/04 Kaylee Miller MD [facility] [place] [address] Referring Physician 07/26/22 Kiesha Ochoa MD [address] [place] [address] Obstetrics and Gynecology 01/11/23 Book Coverer Relationship Specialty Start Date End Date Vanita Lizarraga MD [address] [place] [address] PCP - General General 12/10/04 Kaylee Miller MD [address] [place] [address] Road [address] [place] [address] Referring Physician 07/26/22 Kiesha Ochoa MD [address] [place] [address] Obstetrics and Gynecology 01/11/23 Book Coverer Relationship Specialty Start Date End Date Vanita Lizarraga MD [address] [place] [address] PCP - General Family Medicine 07/13/21 Book Coverer Relationship Specialty Start Date End Date Vanita Lizarraga MD [address] [place] [address] PCP - General Family Medicine 07/13/21 Book Coverer Relationship Specialty Start Date End Date Vanita Lizarraga MD [address] [place] [address] PCP - General Family Medicine 07/13/21 Book Coverer Relationship Specialty Start Date End Date Vanita Lizarraga MD [address] [facility] [address] [place] [phone] PCP - General General 12/10/04 Kaylee Miller MD [facility] [address] [place] [address] Referring Physician 07/26/22 Kiesha Ochoa MD [address] [facility] [address] [place] [address] Obstetrics and Gynecology 01/11/23 Book Coverer Relationship Specialty Start Date End Date Vanita Lizarraga MD [address] [place] [phone] PCP - General Family Medicine 07/13/21 Ordered Prescriptions (unrec ognized section and content) Prescription Sig Dispensed Refills Start Date End Da te sodium,potassium,mag sulfates (Suprep Bowel Prep Kit) 17.5-3.13-1.6 gram recon soln bowel prep kit oral solution Take as instructed form the office 1 kit 0 04/19/2022 FOR RECORDS PERTAINING TO PATIENTS WHO ARE OR HAVE BEEN ENROLLED IN A CHEMICAL DEPENDENCY/SUBSTANCEABUSE PROGRAM, SOME INFORMATION MAY BE OMITTED. This clinical summary was aggregated from multiple sources. Caution should be exercised in using it in the provision of clinical care. This summary normalizes information from multiple sources, and as a consequence, information in this document may materially change the coding, format and clinical context of patient data. In addition, data may be omitted in some cases. CLINICAL DECISIONS SHOULD BE BASED ON THE PRIMARY CLINICAL RECORDS. [facility]. provides no warranty or guarantee of the accuracy or completeness of information in this document.
--- NOTE | 2025-03-23 16:28 | EKG12_ITS ---
Test Reason : CP Blood Pressure : */* mmHG Vent. Rate : 61 BPM Atrial Rate : 61 BPM P-R Int : 142 ms QRS Dur : 82 ms QT Int : 432 ms P-R-T Axes : 52 17 44 degrees QTcB Int : 434 ms Normal sinus rhythm Normal ECG When compared with ECG of 23-Mar-2025 13:47, MANUAL COMPARISON REQUIRED DATA IS UNCONFIRMED Confirmed by Jayden Johnson ([id number]), primer expeditor and drier MAUDE JACOME ([id number]) on 03/24/2025 10:32:46 AM Referred By: JESUS Confirmed By: Jayden Johnson
[2025-03-23] MEDS: 0.9% Normal Saline (1000mL) 1,000 ML 125 ML IV (17:31)
[2025-03-23] MEDS: 0.9% Saline Lock 10 ML Syringe IV (17:31)
[2025-03-23 17:34] LABS: Troponin T High Sensitivity 7 ng/L (<=14)
--- NOTE | 2025-03-23 18:15 | EKG12_ITS ---
Test Reason : CP Blood Pressure : */* mmHG Vent. Rate : 72 BPM Atrial Rate : 72 BPM P-R Int : 136 ms QRS Dur : 84 ms QT Int : 424 ms P-R-T Axes : 53 46 58 degrees QTcB Int : 464 ms Normal sinus rhythm Normal ECG When compared with ECG of 23-Mar-2025 16:26, MANUAL COMPARISON REQUIRED DATA IS UNCONFIRMED Confirmed by Jayden Johnson ([id number]), restaurant expeditor MAUDE JACOME ([id number]) on 03/24/2025 10:32:36 AM Referred By: JESUS Confirmed By: Jayden Johnson
[2025-03-23 19:16] LABS: Troponin T High Sens 2 HR < 6 ng/L (<=14)
[2025-03-23 21:16] LABS: Troponin T High Sens 4 HR < 6 ng/L (<=14)
[2025-03-24] MEDS: 0.9% Normal Saline (1000mL) 1,000 ML 125 ML IV (00:59)
[2025-03-24 02:00] VITALS: BP 122/70; PULSE 62; RESP 18; TEMP 37; O2SAT 96
--- NOTE | 2025-03-24 05:55 | ECHOD_ITS ---
Reason For Study Reason For Study: TIA/CVA Procedure This was a 2D Doppler, Color Flow transthoracic echocardiogram. Exam performed portable in patient room. Left Ventricle Normal size and thickness. The left ventricular ejection fraction is 65 %. Normal diastololic function. Right Ventricle Normal right ventricle. Atria The left and right atria are normal. Bubble contrast study is negative for PFO/ASD. Mitral Valve Trivial mitral valve insufficiency. Tricuspid Valve Mild (1+) tricuspid valve insufficiency. Normal pulmonary artery pressure. Aortic Valve Trisinus/trileaflet aortic valve. Pulmonic Valve The pulmonic valve is not well visualized. Great Vessels Normal sized aortic root. Pericardium/Pleural No pericardial effusion. Medication Performed a rapid injection of agitated mix of 9 cc saline and 1cc air to assess for atrial septal defect. MMode/2D Measurements & Calculations LVIDd: 4.6 cm IVSd: 0.96 cm Ao root diam: 2.8 cm LVIDs: 2.6 cm LVPWd: 0.93 cm RVDd: 3.7 cm FS: 43.5 % LAV(MOD-bp): 38.8 ml LVAd ap4: 23.5 cm2 SV(MOD-sp4): 46.2 ml LAV(MOD-bp) Indexed: 23.9 ml/m2 LVLd ap4: 6.5 cm SI(MOD-sp4): 28.4 ml/m2 LAV(MOD-sp2): 39.0 ml EDV(MOD-sp4): 68.6 ml LAV(MOD-sp4): 34.7 ml EDV(sp4-el): 72.2 ml LVAs ap4: 11.5 cm2 LVLs ap4: 5.1 cm ESV(MOD-sp4): 22.4 ml ESV(sp4-el): 22.0 ml EF(MOD-sp4): 67.4 % EF(sp4-el): 69.5 % SV(sp4-el): 50.2 ml LA A4 area: 15.0 cm2 LA dimension(2D): 3.6 cm RA A4 area: 14.3 cm2 TAPSE: 1.6 cm Time Measurements MV dec time: 0.17 sec Doppler Measurements & Calculations MV E max oswaldo: 84.2 cm/sec Lat Peak E' Oswaldo: 13.7 cm/sec Med Peak E' Oswaldo: 12.6 cm/sec MV A max oswaldo: 60.7 cm/sec E/E' lat: 6.1 E/E' med: 6.7 MV E/A: 1.4 MV V2 max: 107.0 cm/sec MV P1/2t max oswaldo: 108.7 cm/sec Ao V2 max: 144.8 cm/sec MV max P.6 mmHg MV P1/2t: 64.7 msec Ao max P.4 mmHg MV V2 mean: 44.6 cm/sec MV dec slope: 492.4 cm/sec2 Ao V2 mean: 96.4 cm/sec MV mean P.1 mmHg MVA(P1/2t): 3.4 cm2 Ao mean P.4 mmHg MV V2 VTI: 28.3 cm Ao V2 VTI: 32.2 cm AV (velocity ratio): 0.84 LV V1 max: 121.8 cm/sec PA V2 max: 98.9 cm/sec TR max oswaldo: 209.7 cm/sec LV V1 max P.9 mmHg TR max P.6 mmHg LV V1 mean P.4 mmHg LV V1 mean: 85.9 cm/sec LV V1 VTI: 27.0 cm ECHO/Echo Complete Interpretation Summary The left ventricular ejection fraction is 65 %. Bubble contrast study is negative for PFO/ASD. Mild (1+) tricuspid valve insufficiency. Ordering Physician: Christi Carey Performed By: Peewee Diaz RCS
[2025-03-24 06:00] VITALS: BP 137/90; PULSE 72; RESP 18; TEMP 37; O2SAT 98
[2025-03-24 06:21] LABS: Hematocrit 35.7 % (37-47); Hemoglobin 12.1 g/dL (12.0-15.0); Immature Granulocytes Count 0.020 X10^3/uL (0.0-0.0); Mean Corp Hgb Conc 33.9 g/dL (32-36); Mean Corpuscular Volume 91.3 fL (81-99); Mean Platelet Vol. 10.4 fl (6.2-12.0); NRBC Flagged by Analyzer 0 % (0-5); Platelet Count 242 K/mm3 (150-450); RBC Distribution Width CV 12.8 % (11.6-14.6); RBC Distribution Width SD 42.5 fl (35.1-43.9); Red Blood Count 3.91 M/mm3 (4.2-5.4); White Blood Count 5.2 K/mm3 (4.4-11.0)
[2025-03-24 06:49] VITALS: O2SAT 95
[2025-03-24 06:53] LABS: Anion Gap 8 (5-15); BUN 12 mg/dL (4-19); BUN/Creat Ratio 17.2 RATIO (10-20); Calcium,Total 8.0 mg/dL (7.6-11.0); Carbon Dioxide 22.1 mmol/L (21.0-32.0); Chloride 109 mmol/L (98-108); Cholesterol 189 mg/dL (<=200); Estimated Creatinine Clearance 76.67 ml/min (50-250); Glucose 99 mg/dL (70-99); Low Density Lipoprotein Calc. 117 mg/dL; Potassium 3.9 mmol/L (3.3-5.1); Triglycerides 68 mg/dL; Very Low Density Lipoprotein 14 mg/dL (5-40); cholesterol:hdl ratio screen 3.20
--- NOTE | 2025-03-24 09:15 | MRI_ITS ---
PROCEDURE: BRAIN WITHOUT CONTRAST 03/24/2025 REASON FOR EXAM: STROKE Lightheadedness, overall weakness. Presyncope. Difficulty moving all extremities. Negative stroke alert CT TECHNIQUE: Procedure Code: MRIBR Modality: MR Procedure: BRAIN WITHOUT CONTRAST Multiplanar and multisequence images were obtained. COMPARISON: March 23, 2025 FINDINGS: Brain: No evidence of hemorrhage. No evidence of acute ischemia. No extra- axial fluid collection, midline shift or mass effect. Ventricles: No hydrocephalus Major Intracranial Vessels: Flow voids are unremarkable. Correlate with recent CT angiogram Sinuses: Circumferential mucosal thickening in the maxillary sinuses, [id number]. Ethmoid sinus disease at the mid and anterior ethmoid air cells on the left. Mastoids: Clear MRI/Brain without Contrast IMPRESSION: 1. No evidence of acute ischemia. 2. Left ethmoid sinus disease. Mucosal thickening maxillary sinuses, left-gre [id number]. Reading Location: [id number]
--- NOTE | 2025-03-24 09:47 | CASEMGMT ---
Social Work Per imaging pt negative for stroke, therefore PHQ9 not completed. SO Phillips
[2025-03-24 10:00] VITALS: BP 123/91; PULSE 70; RESP 14; TEMP 37; O2SAT 98
--- NOTE | 2025-03-24 10:53 | EKG12_ITS ---
Test Reason : CP Blood Pressure : */* mmHG Vent. Rate : 58 BPM Atrial Rate : 58 BPM P-R Int : 134 ms QRS Dur : 84 ms QT Int : 420 ms P-R-T Axes : 44 41 60 degrees QTcB Int : 412 ms Sinus bradycardia Otherwise normal ECG When compared with ECG of 23-Mar-2025 18:21, QT has shortened Confirmed by Jayden Johnosn ([id number]), fashion editor MAUDE JACOME ([id number]) on 03/25/2025 11:39:37 AM Referred By: Confirmed By: Jayden Johnson
[2025-03-24 13:05] VITALS: BMI 23.6
[2025-03-24 16:13] VITALS: BP 140/83; PULSE 67; RESP 14; TEMP 37.1; O2SAT 98
--- NOTE | 2025-03-24 16:13 | CHAPLAIN ---
Type of Pastoral Visit _x__ Initial Visit ___ Follow-up Visit ___ On-call Visit ___ General Patient Visit ___ Spiritual Assessment ___ Family Conference ___ Bereavement ___ Rapid Response ___ Code Blue ___ Other (describe below) Pastoral Care Referral From ___ Patient ___ Family ___ Nurse ___ Physician ___ Agricultural Education Professor ___ Crnp _x__ Other (describe below) Sacrament/Intervention ___ Active listening ___ Anointing ___ Samaritan ___ Bereavement ___ Communion ___ Cha exploration ___ ___ Life review ___ Prayer ___ Reconciliation ___ Sacrament of Sick _x__ Supportive presence ___ Wedding ___ Other (describe below) Pastoral Comments patient denies needing spiritual care support; spouse is with her; pt wants to nap
--- NOTE | 2025-03-24 16:54 | PN_ITS ---
Subjective Subjective Patient seen and examined. His significant other was by her bedside. She had no complaints this morning. Overnight she did complains of some episodic chest pain but EKG was negative and troponins were also negative. She was given p.o. Ativan as needed as there was concern that she was having some anxiety. She has been hemodynamically stable. Objective Data Objective Data Vital Signs: Vital Signs Temp Pulse Resp BP Pulse Ox O2 Del Method 98.7 F 67 14 140/83 H 98 Room Air 03/24/25 16:13 03/24/25 16:13 03/24/25 16:13 03/24/25 16:13 03/24/25 16:13 03/24/25 16:13 Oxygen Delivery Method Room Air Weight: 133 lb 6.075 oz Body Mass Index (BMI) 23.6 Intake & Output: Intake and Output for Last 24 Hours 03/22/25 03/23/25 03/24/25 23:59 23:59 23:59 Intake Total 0 / 0 2200.00 / 2200.00 Balance 0 / 0 2200.00 / 2200.00 Lab / Micro Data 03/24/25 05:58 03/24/25 05:58 Labs: Laboratory Results - last 24 hr 03/23/25 16:47: Troponin T High Sens 7 D 03/23/25 18:05: POC Glucose 111 H 03/23/25 18:47: Troponin T Hi Sens 2 Hr < 6 03/23/25 20:48: Troponin T Hi Sens 4Hr < 6 03/24/25 05:58: WBC 5.2, RBC 3.91 L, Hgb 12.1, Hct 35.7 L, MCV 91.3, MCH 30.9, MCHC 33.9, RDW Std Deviation 42.5, RDW Coeff of Dilip 12.8, Plt Count 242, MPV 10.4, Immature Gran % (Auto) 0.400, Neut % (Auto) 39.3 L, Lymph % (Auto) 42.4 H, Coffey % (Auto) 9.1, Eos % (Auto) 7.4 H, Baso % (Auto) 1.4 H, Absolute Neuts (auto) 2.0, Absolute Lymphs (auto) 2.19, Nucleated RBC % 0, Sodium 139, Potassium 3.9, Chloride 109 H, Carbon Dioxide 22.1, Anion Gap 8, BUN 12, Creatinine 0.71, Estim Creat Clear Calc 76.67, Est GFR (MDRD) Non-Af 102, BUN/Creatinine Ratio 17.2, Glucose 99, Calcium 8.0, Triglycerides 68, Cholesterol 189, LDL Cholesterol, Calc 117, VLDL Cholesterol 14, HDL Cholesterol 59, Cholesterol/HDL Ratio 3.20 Radiography Diagnostic Testing: Radiology Impression Echocardiogram 03/24/25 05:55 Interpretation Summary The left ventricular ejection fraction is 65 %. Bubble contrast study is negative for PFO/ASD. Mild (1+) tricuspid valve insufficiency. Ordering Physician: Christi Carey Performed By: Peewee Diaz, [facility] Brain MRI 03/24/25 09:15 IMPRESSION: 1. No evidence of acute ischemia. 2. Left ethmoid sinus disease. Mucosal thickening maxillary sinuses, [id number]. Reading Location: [facility] Rhythm Strip Rhythm Strip: Sinus Rhythm Rate: 78 Ectopy: None Physical Exam Const alert, oriented x3 and no apparent distress Constitutional Narrative: flat affect General Appearance: cooperative HEENT normocephalic, head/scalp atraumatic, hearing grossly normal bilaterally and moist oral mucous membranes Eyes PERRL, EOMs intact bilaterally and conjunctivae normal Neck supple and no JVD Resp normal respiratory effort, normal air movement, no retractions, no use of accessory muscles and clear to auscultation bilaterally Cardio regular rate, regular rhythm, S1 normal heart sound, S2 normal heart sound and no murmurs GI normal to inspection, nondistended, normoactive bowel sounds, soft to palpation, non-tender and non-distended Extremity normal to inspection and full ROM General Extremity: no tenderness to palpation of joints or extremities Skin General Skin Exam: no breakdown Neuro oriented x3, CN's II-XII intact bilaterally, moves all extremities and no focal motor deficits Sensorium / Orientation: awake and alert Speech: speech normal Motor Exam: strength 5/5 throughout Psych thought process normal and cooperative Psych Narrative: flat affect Mood & Affect: flat affect Assessment & Plan Assessment/Plan (1) Stroke-like symptom: PLAN: Plan #presyncope to rule out a stroke * Admit to PCU under observation. Patient admitted with a complaint of lightheadedness and presyncopal symptoms. * Symptoms had resolved by time she came to the ED. CT of the brain showed no acute intracranial pathology. CTA of the head and neck showed no hemodynamically significant stenosis. * Consult PT OT. Fall precautions. * I am concerned that this could be somatizations symptoms and a possible panic attack in light of her history of panic attacks and undergoing stressful situations such as a divorce and also having a stressful job. However it is important to rule out any organic pathology by getting the MRI. * MRI of the brain done is negative for any evidence of a stroke. EEG has been done and read is pending. 2D echo today showed EF of 65% with bubble contrast study negative for PFO or ASD. * #Chest pain: Patient complained of some intermittent chest pain. EKG showed normal sinus rhythm. Troponins were negative and 2D echo as above. * #Elevated D-dimer: * D-dimer 0.63 which is elevated for her age. * She does not really have any symptoms of PE. * CTA of the chest showed no evidence of PE and showed no acute pathology. #Elevated blood pressure: * Blood pressure is down to 140/83. Does not really have a history of hypertension. * Will hold off on all BP meds and she will receive IV labetalol as needed Stroke protocol. * If blood pressure remains elevated, will consider starting oral BP meds. * DVT prophylaxis: SCDs Code status: Full code Disposition: DC home pending neurology recommendations and EEG read. Charges/Coding Visit Charges Inpatient E&M: 09887 Subs Hosp L2
--- NOTE | 2025-03-24 16:59 | DCINST_ITS ---
Discharge Instructions DC O2, CPAP, BIPAP needs Home O2 Discharge instructions: No Dressing / Incision Discharge Activity: Return to Normal Activity Weight Bearing Status: Weight bearing as tolerated Dressing / Incision Call your doctor if you observe: Fever of 101 or Higher, Shortness of breath, Dizziness, Swelling in the ankles and Chest pain Follow Up Care Test Results: Test results from this visit will be discussed in further detail at your follow- up appointment, if applicable. Discharge Plan Admission Admit Date/Time: 03/23/25 15:09 Primary Reason for Your Visit: stroke like symptoms Attending Provider: Christi Carey Primary Care Provider: NATY LIND Consulting Providers: Nolan Crisostomo; Cruzito Chambers; Sharon Bright; Thais Nolen; Tayla Villalpando; Poncho Booker; Gifty Aquino; Paco Valdivia; Javid English; Paul Delgado; Angelique Yoder; Heather Nguyen; Marbin Evans; Tena Jules; James Tovar; Gui Lang; Kenan Hanna; Taylor Fried; Alejo Collado; Rasheeda Box; Curly Dunne Instructions Patient Instructions: ED Functional Neurological ... Discharge Orders/Prescriptions Prescriptions: Continued lisinopril 5 mg tablet 5 mg PO DAILY Referrals / Follow Up: NATY LIND [Other] - Within 1 Week Yohan Montgomery MD [Non-Staff -Ordering Privileges, Neurology] - Within 2 Weeks Disposition Disposition (needs filled in before D/C Order can be placed): Home, Self Care
[2025-03-24 17:00] VITALS: BMI 23.6
[2025-03-24 21:00] VITALS: BP 119/71; PULSE 62; RESP 16; TEMP 36.1; O2SAT 96
[2025-03-24 23:37] VITALS: BMI 23.6
[2025-03-25 04:00] VITALS: BP 181/63; PULSE 64; RESP 20; TEMP 36.6; O2SAT 98
[2025-03-25 06:35] VITALS: O2SAT 95
[2025-03-25 09:46] VITALS: BP 129/79; PULSE 67; RESP 16; TEMP 36.1; O2SAT 97
--- NOTE | 2025-03-25 10:10 | STROKE.CONS ---
Assessment and Plan: Stroke Assessment/Plan Work up without evidence of acute stroke and not suggestive of TIA. No further neurovascular work up is necessary at this time. HPI Consult Data Date of Consult: 03/25/25 HPI Narrative HPI Narrative: MITCHELL BOWLING, is a 54 F who presents with lightheadedness and generalized weakness. Symptoms have since resolved. No focal complaints. NIHSS on exam is 0 PFSH Medical History (Updated 03/23/25 @ 16:32 by Christine Tate) Raynauds syndrome HTN (hypertension) Home Medications ?Medication ?Instructions ?Recorded ?Last Taken ?Type lisinopril 5 mg tablet 5 mg PO DAILY 03/23/25 03/23/25 History Allergy/AdvReac Type Severity Reaction Status Date / Time Sulfa (Sulfonamide Allergy Intermediate Rash Verified 03/23/25 13:29 Antibiotics) Family History (Updated 03/23/25 @ 16:33 by Christine Tate) Mother Colon cancer Father Lung cancer Surgical History (Updated 03/23/25 @ 16:33 by Christine Tate) History of ankle surgery Social History Smoking Status: Never smoker Vital Signs Vital Signs Vital Signs: 03/24/25 16:13 03/24/25 21:00 03/24/25 22:00 Temperature 98.7 F 97.0 F L Temperature Source Temporal Temporal Pulse Rate 67 62 Pulse Strength Normal (2+) Respiratory Rate 14 16 Respiratory Effort Respiratory Depth Respiratory Pattern Blood Pressure 140/83 H 119/71 Blood Pressure Mean 102 87 Blood Pressure Source Monitor Monitor Blood Pressure Position Sitting Semi-Fowlers Blood Pressure Location Right Arm Right Arm Pulse Ox 98 96 Oxygen Delivery Method Room Air Room Air 03/24/25 22:00 03/25/25 04:00 03/25/25 09:46 Temperature 97.8 F 97.0 F L Temperature Source Temporal Temporal Pulse Rate 64 67 Pulse Strength Respiratory Rate 20 H 16 Respiratory Effort Normal Non-Labored Respiratory Depth Normal Respiratory Pattern Normal Blood Pressure 181/63 H 129/79 H Blood Pressure Mean 102 95 Blood Pressure Source Monitor Monitor Blood Pressure Position Semi-Fowlers Sitting Blood Pressure Location Right Arm Right Arm Pulse Ox 98 97 Oxygen Delivery Method Room Air Room Air Room Air Weight Weight: 60.5 kg Body Mass Index (BMI) 23.6 EEG Results Procedure Details EEG Procedure Details: MITCHELL BOWLING is a 54 year old F with a past medical history of , who presents for evaluation of Electroencephalogram on DATE at TIME Lab / Micro Data 03/24/25 05:58 03/24/25 05:58 Labs: Laboratory Results - last 24 hr 03/25/25 04:19: POC Glucose 118 H Rhythm Strip Rhythm Strip: Sinus Rhythm Rate: 78 Ectopy: None Imaging Radiology Impression Echocardiogram 03/24/25 05:55 Interpretation Summary The left ventricular ejection fraction is 65 %. Bubble contrast study is negative for PFO/ASD. Mild (1+) tricuspid valve insufficiency. Ordering Physician: Christi Carey Performed By: Peewee Diaz [facility] Active Medications Active Medications Active Medications: Current Medications Generic Name Dose Route Start Last Admin Trade Name Freq PRN Reason Stop Dose Admin Acetaminophen 650 mg 03/23/25 15:57 03/24/25 20:35 Acetaminophen 325 Mg Tablet PO 650 mg Q6H PRN PRN Administration Pain 1-10 Or Fever >100.7 Aspirin 81 mg 03/24/25 08:00 03/25/25 09:46 Aspirin 81 Mg Tab.Chew PO 81 mg BREAKFAST TRICE Administration Atorvastatin Calcium 40 mg 03/23/25 22:00 03/24/25 20:38 Atorvastatin Calcium 40 Mg Tablet PO Not Given QHS TRICE Sodium Chloride 250 mls @ 15 mls/hr 03/23/25 16:05 IV .[id number] PRN Saline Flush Sodium Chloride 250 mls @ 15 mls/hr 03/23/25 16:05 IV .[id number] PRN Additional IVPB Infusion Sodium Chloride 250 mls @ 15 mls/hr 03/24/25 16:42 IV .[id number] PRN Saline Flush Sodium Chloride 250 mls @ 15 mls/hr 03/24/25 16:42 IV .[id number] PRN Additional IVPB Infusion Lisinopril 5 mg 03/25/25 10:00 03/25/25 09:46 Lisinopril 5 Mg Tablet PO 5 mg DAILY TRICE Administration Protocol Lorazepam 1 mg 03/23/25 19:30 03/24/25 20:36 Lorazepam 1 Mg Tablet PO 1 mg Q6H PRN PRN Administration ANXIETY Lorazepam 1 mg 03/23/25 19:30 Lorazepam 2 Mg/Ml Syringe IV X1 PRN SEIZURES Nitroglycerin 0.4 mg 03/23/25 15:57 Nitroglycerin (Inpatient Use) 0.4 Mg Tab.Subl SL Q5M PRN CARDIAC/CHEST PAIN Ondansetron HCl 4 mg 03/23/25 15:57 03/25/25 04:03 Ondansetron 4 Mg/2 Ml Vial IV 4 mg Q8H PRN PRN Administration NAUSEA/VOMITING Oxycodone HCl 2.5 - 5 mg 03/23/25 15:57 Oxycodone 5 Mg Tablet PO Q4H PRN PRN Pain Score 4-10 Sodium Chloride 10 - 40 ml 03/23/25 16:05 03/23/25 17:31 0.9% Saline Lock 10 Ml Syringe IV 10 ml UD PRN Administration SALINE FLUSH Sodium Chloride 10 - 40 ml 03/24/25 16:42 0.9% Saline Lock 10 Ml Syringe IV UD PRN SALINE FLUSH NIHSS NIHSS Nursing Documentation NIHSS Nursing Documentation: NIHSS: Ischemic Stroke/TIA Start: 03/23/25 15:57 Text: For PCU Patients: NIH and Neuro Check every 4 Status: Complete hours, PRN and with change in RN caregiver. Freq: [id number] Protocol: Activity Type Activity Date Activity User E-sign Co-sign Detail Recorded Client Recorded Date Recorded By Document 03/24/25 10:00 NB desktop 03/24/25 10:05 NB 03/24/25 10:00 NIH Stroke Scale [NIHSS] A score of 0 is normal or asymptomatic . Total possible score is 42. Inpatient: RN or Physician to activate a stroke alert for onset of new stroke symptoms or with NIHSS increase >/= 3 points. Following change in neurological status, NIHSS will be performed per physician order or more frequently PRN. -1a. Level of Consciousness 0 - Alert; keenly responsive -1b. LOC Questions 0 - Answers BOTH questions correctly -1c. LOC Commands 0 - Performs BOTH tasks correctly -2. Best Gaze 0 - Normal -3. Visual 0 - No visual loss -4. Facial Palsy 0 - Normal symmetrical movements -5a. Left Arm 0 - No drift; arm holds 90 ( or 45) degrees for full 10 seconds -5b. Right Arm 0 - No drift; arm holds 90 ( or 45) degrees for full 10 seconds -6a. Left Leg 0 - No drift; leg holds 30- degree position for full 5 seconds -6b. Right Leg 0 - No drift; leg holds 30- degree position for full 5 seconds -7. Limb Ataxia 0 - Absent -8. Sensory 0 - Normal; no sensory loss -9. Best Language 0 - No aphasia; normal -10. Dysarthria 0 - Normal -11. Extinction and Inattention 0 - No abnormality -Total 0 Query Text:A score of 0 is normal or asymptomatic. Total possible score is 42 . ED: Notify Physician for NIHSS increase by > / = 3 points. Inpatient: RN or Physician to activate a stroke alert for NIHSS increase of > / = 3 points. Coma Scale [Assess] -Eye Opening Spontaneous -Motor Obeys Commands -Verbal Oriented [Total] -Coma Scale Total 15 NIHSS: Ischemic Stroke/TIA Start: 03/23/25 15:57 Text: For ICU Patients: NIH sroke scale at Status: Complete presentation and every 2 hours or with change in RN caregiver Freq: [id number] Protocol: Activity Type Activity Date Activity User E-sign Co-sign Detail Recorded Client Recorded Date Recorded By Document 03/23/25 21:55 [facility] [id number] 03/23/25 21:57 [facility] 03/23/25 21:55 NIH Stroke Scale [NIHSS] A score of 0 is normal or asymptomatic . Total possible score is 42. Inpatient: RN or Physician to activate a stroke alert for onset of new stroke symptoms or with NIHSS increase >/= 3 points. Following change in neurological status, NIHSS will be performed per physician order or more frequently PRN. -1a. Level of Consciousness 0 - Alert; keenly responsive -1b. LOC Questions 0 - Answers BOTH questions correctly -1c. LOC Commands 0 - Performs BOTH tasks correctly -2. Best Gaze 0 - Normal -3. Visual 0 - No visual loss -4. Facial Palsy 0 - Normal symmetrical movements -5a. Left Arm 0 - No drift; arm holds 90 ( or 45) degrees for full 10 seconds -5b. Right Arm 0 - No drift; arm holds 90 ( or 45) degrees for full 10 seconds -6a. Left Leg 0 - No drift; leg holds 30- degree position for full 5 seconds -6b. Right Leg 0 - No drift; leg holds 30- degree position for full 5 seconds -7. Limb Ataxia 0 - Absent -8. Sensory 0 - Normal; no sensory loss -9. Best Language 0 - No aphasia; normal -10. Dysarthria 0 - Normal -11. Extinction and Inattention 0 - No abnormality -Total 0 Query Text:A score of 0 is normal or asymptomatic. Total possible score is 42 . ED: Notify Physician for NIHSS increase by > / = 3 points. Inpatient: RN or Physician to activate a stroke alert for NIHSS increase of > / = 3 points. Coma Scale [Assess] -Eye Opening Spontaneous -Motor Obeys Commands -Verbal Oriented [Total] -Coma Scale Total 15
--- NOTE | 2025-03-25 13:19 | DS.PCM_ITS ---
Providers Date of Admission: 03/23/25 Date of Discharge: 03/25/25 Primary Care Physician: NATY LIND Consultations 03/23/25 15:57 Consult: Tele-Neurology Routine Consulting Provider: [facility] Reason for Consult: Acute Ischemic Stroke/TIA EMERGENT Consult: No MD Notified: Yes Date Notified: 03/23/25 Time Notified: 15:10 Method of Notification: Answering Service Nursing Unit Staff Notify [facility] of Tele-Neurology Consult: Yes Reason For Visit: STROKE LIKE SYMPTOMS Diagnosis Discharge Diagnosis (1) Stroke-like symptom: Status: Acute Code(s): R29.90 - Unspecified symptoms and signs involving the nervous system Plan #presyncope to rule out a stroke * Admit to PCU under observation. Patient admitted with a complaint of lightheadedness and presyncopal symptoms. * Symptoms had resolved by time she came to the ED. CT of the brain showed no acute intracranial pathology. CTA of the head and neck showed no hemodynamically significant stenosis. * Consult PT OT. Fall precautions. * I am concerned that this could be somatizations symptoms and a possible panic attack in light of her history of panic attacks and undergoing stressful situations such as a divorce and also having a stressful job. However it is important to rule out any organic pathology by getting the MRI. * MRI of the brain done is negative for any evidence of a stroke. EEG has been done and read is pending. 2D echo today showed EF of 65% with bubble contrast study negative for PFO or ASD. * #Chest pain: Patient complained of some intermittent chest pain. EKG showed normal sinus rhythm. Troponins were negative and 2D echo as above. * #Elevated D-dimer: * D-dimer 0.63 which is elevated for her age. * She does not really have any symptoms of PE. * CTA of the chest showed no evidence of PE and showed no acute pathology. #Elevated blood pressure: * Blood pressure is down to 140/83. Does not really have a history of hypertension. * Will hold off on all BP meds and she will receive IV labetalol as needed Stroke protocol. * If blood pressure remains elevated, will consider starting oral BP meds. * DVT prophylaxis: SCDs Code status: Full code Disposition: DC home pending neurology recommendations and EEG read. Medications at Discharge Home Medications lisinopril 5 mg tablet 5 mg PO DAILY 03/23/25 Hospital Course Operations None Procedures 2-D Echocardiogram and Electroencephalogram Summary of Care Provided Minutes Spent on Discharge: 45 Hospital Course: MITCHELL BOWLING, is a 54 F with a PMH as outlined who was admitted via the ED on 03/23/2025 with a complaint of lightheadedness and weakness, with symptom onset being ~ 1.5 hours prior to her coming in to the ED. Symptoms occurred whilst driving. Sh started feeling very lightheaded, and had difficulty moving her extremities. SHe denied any chest pain initially but during my review she admitted to some intermittent chest pain, and denied any shortness of breath, nausea, vomiting or any other symptoms. She had associated hyperventilation. Review of systems was otherwise negative. The EMS was called and she was lethargic when she arrived, but they did not note any focal symptoms. Review of systems is otherwise negative. Patient admits to going through a divorce and also states she has a very stressful job. She also has a history of panic attacks. She had a similar occurrence several years ago and says she was worked up for stroke at that time to and other workup was negative. VItals in the ED were BP of 170/90, ND of 65, RR of 16 and oxygen sats of 100% on room air. CBC showed Hb of 14.3, wbc of 9.3 and platelets of 318. D-dimer was 65 which is elevated for age. Chemistry shows sodium of 138 with potassium of 3.8 and bicarb of 21.7 with creatinine of 0.85. CT of the brain showed no acute intracranial pathology and showed significant left ethmoid sinus disease. CTA head and neck showed no hemodynamically significant stenosis. [facility] reviewed her and recommended that she was admitted to be worked up for stroke. She had MRI of the brain which showed no evidence of any stroke or any intracranial pathology. She had EEG which showed no evidence of seizure. Neurology was consulted and did not think her symptoms were seizure related or related to a stroke and stated that she did not need any further neurovascular workup. Patient symptoms were likely thought to be somatization symptoms from underlying conversion disorder as she had a lot of work stress and also admitted to frequent panic attacks. She was also undergoing a divorce which added to her anxiety. She was counseled to follow-up with her PCP and to be referred to a psychiatrist as needed for initiation of medications. 2D echo showed EF of 65% with normal LV systolic function and negative bubble contrast study. She was discharged home on 03/25/2025. She is follow-up with her primary care doctor within 1 to 2 weeks. Patient seen and examined prior to discharge. She had no active complaints. Her significant other was by her bedside. Review of systems otherwise negative. Labs and vitals reviewed. Home medication reviewed and reconciled. Physical Exam Const alert, oriented x3 and no apparent distress Constitutional Narrative: flat affect General Appearance: cooperative and comfortable HEENT normocephalic, head/scalp atraumatic, hearing grossly normal bilaterally and moist oral mucous membranes Mouth: oral and palatal mucosa normal Eyes EOMs intact bilaterally and conjunctivae normal Neck supple and no JVD Resp normal respiratory effort, normal air movement, no retractions, no use of accessory muscles and clear to auscultation bilaterally Cardio regular rate, regular rhythm, S1 normal heart sound, S2 normal heart sound and no murmurs GI normal to inspection, nondistended, normoactive bowel sounds, soft to palpation, non-tender and non-distended Extremity normal to inspection and full ROM General Extremity: no tenderness to palpation of joints or extremities Skin no rashes or lesions noted General Skin Exam: no breakdown Neuro oriented x3, CN's II-XII intact bilaterally, moves all extremities and no focal motor deficits Sensorium / Orientation: awake and alert Speech: speech normal Motor Exam: strength 5/5 throughout Psych thought process normal and cooperative Psych Narrative: flat affect Weight / BMI Weight Weight: 133 lb 6.075 oz Body Mass Index (BMI) 23.6 ABG / Lab / Microbiology Data 03/24/25 05:58 03/24/25 05:58 Laboratory: Laboratory Results - last 24 hr 03/25/25 04:19: POC Glucose 118 H D/C Instructions Discharge Activity: Return to Normal Activity Weight Bearing Status: Weight bearing as tolerated Call your doctor if you observe: Fever of 101 or Higher, Shortness of breath, Dizziness, Swelling in the ankles and Chest pain DC O2, CPAP, BIPAP Needs Home O2 Discharge instructions: No DC home with Oxygen: No Meaningful Use Info Meaningful Use Meaningful Use Diagnoses (Choose all that apply): None applicable Discharge Plan Admission Admit Date/Time: 03/23/25 15:09 Primary Reason for Your Visit: stroke like symptoms Attending Provider: Christi Carey Primary Care Provider: NATY LIND Consulting Providers: Nolan Crisostomo; Cruzito Chambers; Sharon Bright; Thais Nolen; Tayla Villalpando; Poncho Booker; Gifty Aquino; Paco Valdivia; Javid English; Paul Delgado; Angelique Yoder; Heather Nguyen; Marbin Evans; Tena Jules; James Tovar; Gui Lang; Kenan Hanna; Taylor Fried; Alejo Collado; Rasheeda Box; Curly Dunne Instructions Patient Instructions: ED Functional Neurological ... Discharge Orders/Prescriptions Prescriptions: Continued lisinopril 5 mg tablet 5 mg PO DAILY Referrals / Follow Up: NATY LIND [Other] - Within 1 Week Yohan Montgomery MD [Non-Staff -Ordering Privileges, Neurology] - Within 2 Weeks Disposition Disposition (needs filled in before D/C Order can be placed): Home, Self Care Charges/Coding Visit Charges Inpatient E&M: 81714 Disch Hosp >30min
--- NOTE | 2025-03-25 13:33 | PHA.DC.MR.R ---
Pharmacy [facility] Med Reconciliation Pharmacy Service has performed discharge medication reconciliation for this patient. The patient's discharge medication list was reviewed for discrepancies and discrepancies were resolved. Medications at Discharge Home Medications lisinopril 5 mg tablet 5 mg PO DAILY 03/23/25
== END 2025-03-25 13:48 | disposition home or self-care (01) ==
LOC: ED 14:00 → PCU 15:37
PROVIDERS: Admitting Provider Student in an Organized Health Care Education/Training Program; Emergency Provider Emergency Medicine; Visit Provider Student in an Organized Health Care Education/Training Program
DX: R55 Syncope and collapse (principal); R53.1 Weakness; R07.89 Other chest pain; R47.01 Aphasia; R42 Dizziness and giddiness; I10 Essential (primary) hypertension; J32.2 Chronic ethmoidal sinusitis; R79.1 Abnormal coagulation profile; F41.9 Anxiety disorder, unspecified; Z56.89 Other problems related to employment; Z63.5 Disruption of family by separation and divorce
CPT/HCPCS: 36415; 70450; 70496; 70498; 70551; 71275; 80048; 80061; 82962; 83036; 84484; 85025; 85379; 85610; 85730; 93005; 93306; 94762; 95819; 96361; 96374; 97802; 99221; 99285; Q9967; A4216; G0378; J2405